=== PATIENT | male | born 1970 | race Caucasian/White ===

== ENCOUNTER 2018-01-31 11:03 | Emergency (ER) | payer MEDICAID, OTHER ==
[~2018-01-31] VITALS: Ht 185.4 cm; Wt 75.0 kg
[~2018-01-31 11:03] MED LIST: BUSP10TA11 PO; CLON-527 PO; FOLI1TAB16 PO; GUAI100L97 PO; MAGN400T6 PO; PER10325T PO; THI100T PO; ZES10T PO
[2018-01-31] MEDS ORDERED: normal saline 1000ml 1,000 ML IV ONE (11:40)
[2018-01-31 12:05] LABS: BASOPHILS % (AUTO) 1.1 % (0-1); EOSINOPHILS # (AUTO) 0.1 X10'3 (0-0.9); EOSINOPHILS % (AUTO) 3.8 % (0-6); HEMATOCRIT 31.4 % (42.0-52.0); HEMOGLOBIN 10.6 g/dl (14.0-17.9); LYMPHOCYTES # (AUTO) 0.8 X10'3 (1.1-4.8); LYMPHOCYTES % (AUTO) 25.9 % (21-51); MEAN CORPUSCULAR HEMOGLOBIN 31.8 PG (27.0-31.0); MEAN CORPUSCULAR HGB CONC 33.7 % (33.0-36.5); MEAN CORPUSCULAR VOLUME 94.4 FL (78-98); MEAN PLATELET VOLUME 7.3 FL (7.4-10.4); MONOCYTES # (AUTO) 0.3 X10'3 (0-0.9); MONOCYTES % (AUTO) 8.7 % (2-12); NEUTROPHILS # (AUTO) 1.9 X10'3 (1.8-7.7); NEUTROPHILS % (AUTO) 60.5 % (42-75); PLATELET COUNT 90 X10'3 (140-440); RED BLOOD COUNT 3.33 X10'6 (4.70-6.10); WHITE BLOOD COUNT 3.1 X10'3 (4.5-11.0)
[2018-01-31] MEDS ORDERED: HYDROmorphone 1 mg/ml syringe IV ONE (12:10)
[2018-01-31] MEDS ORDERED: morphine 4 MG/ML inj SYRINge IV ONE (12:10)
[2018-01-31 12:11] LABS: INR 1.3 INR; PARTIAL THROMBOPLASTIN TIME 23 SECONDS (22-32); PROTHROMBIN TIME 13.3 SECONDS (9.0-12.0)
[2018-01-31] MEDS ORDERED: doxycycline hyclate 100mg tablet.DR PO ONE (12:40)
[2018-01-31] MEDS ORDERED: levoFLOXACIN 750MG TABLET PO ONE (12:40)
[2018-01-31] MEDS ORDERED: LEVO500T89 PO (12:42)
[2018-01-31 13:17] LABS: ALANINE AMINOTRANSFERASE 86 U/L (12-78); ALBUMIN 2.9 G/DL (3.4-5.0); ALBUMIN/GLOBULIN RATIO 0.7 (1.1-1.5); ALKALINE PHOSPHATASE 117 IU/L (46-116); ANION GAP 12 (8-16); ASPARTATE AMINO TRANSFERASE 133 U/L (10-37); BILIRUBIN,TOTAL 1.5 MG/DL (0.1-1.0); BLOOD UREA NITROGEN 9 MG/DL (7-18); BUN/CREATININE RATIO 14.1 (5.4-32.0); CALCIUM 7.6 MG/DL (8.5-10.1); CHLORIDE 108 MMOL/L (99-107); CREATININE 0.64 MG/DL (0.60-1.10); GLUCOSE 89 MG/DL (70-104); POTASSIUM 3.1 MMOL/L (3.5-5.1); SODIUM 149 MMOL/L (135-145); TOTAL CARBON DIOXIDE 28.9 MMOL/L (24-32); TOTAL PROTEIN 7.3 G/DL (6.4-8.2); eGFR > 90 ML/MIN
[2018-01-31] MEDS ORDERED: potassium Cl 20 mEq SR tablet PO STA (13:22)
[2018-01-31] MEDS ORDERED: thiamine 100mg tablet PO ONE (13:25)
[2018-01-31 13:27] LABS: ETHANOL 0.285 GM/DL (0.0-0.010); MAGNESIUM 1.5 MG/DL (1.5-2.4); PHOSPHORUS 3.8 MG/DL (2.3-4.5)
[2018-01-31 13:30] VITALS: BP 122/89
[2018-01-31] MEDS ORDERED: DOXYCYCLINE 100MG CAPSULE PO ONE (15:15)
== END 2018-01-31 13:42 | disposition left against medical advice (07) ==
LOC: ER 11:04
DX: R06.02 Shortness of breath (principal); R11.10 Vomiting, unspecified; F10.129 Alcohol abuse with intoxication, unspecified; R91.8 Other nonspecific abnormal finding of lung field; I10 Essential (primary) hypertension; G89.29 Other chronic pain; Z79.899 Other long term (current) drug therapy; Z79.2 Long term (current) use of antibiotics; Y90.9 Presence of alcohol in blood, level not specified
CPT/HCPCS: 36415; 71045; 80053; 80320; 82140; 83735; 84100; 84443; 84484; 85025; 85610; 85730; 96361; 96374; 99285; J2270

== ENCOUNTER 2018-05-11 12:41 | Emergency (ER) | payer MEDICAID ==
[~2018-05-11] VITALS: Ht 185.4 cm; Wt 86.0 kg
[2018-05-11 12:50] VITALS: BP 143/88
== END 2018-05-11 14:22 | disposition home or self-care (01) ==
LOC: ER 12:42
DX: Z46.89 Encounter for fitting and adjustment of other specified devices (principal); I10 Essential (primary) hypertension; G89.29 Other chronic pain; Z98.890 Other specified postprocedural states; Z88.8 Allergy status to other drugs, medicaments and biological substances; Z79.899 Other long term (current) drug therapy
CPT/HCPCS: 99284

== ENCOUNTER 2018-08-24 18:49 | Emergency (ER) | payer MEDICAID ==
[~2018-08-24] VITALS: Ht 177.8 cm; Wt 90.0 kg
[~2018-08-24 18:49] MED LIST changes: -GUAI100L97 PO; -THI100T PO; +THIA100T73 PO
[2018-08-24] MEDS ORDERED: pantoprazole 40 MG vial IV ONE (20:00)
[2018-08-24] MEDS ORDERED: normal saline 1000ML IV soln IVB ONE (20:05)
[2018-08-24 20:45] LABS: BASOPHILS # (AUTO) 0.1 X10'3 (0-0.2); BASOPHILS % (AUTO) 0.7 % (0-1); EOSINOPHILS % (AUTO) 0.6 % (0-6); HEMATOCRIT 31.4 % (42.0-52.0); HEMOGLOBIN 11.2 g/dl (14.0-17.9); LYMPHOCYTES # (AUTO) 1.2 X10'3 (1.1-4.8); LYMPHOCYTES % (AUTO) 16.7 % (21-51); MEAN CORPUSCULAR HEMOGLOBIN 36.4 PG (27.0-31.0); MEAN CORPUSCULAR HGB CONC 35.8 g/dL (33.0-36.5); MEAN CORPUSCULAR VOLUME 101.8 FL (78-98); MEAN PLATELET VOLUME 6.9 FL (7.4-10.4); MONOCYTES # (AUTO) 0.9 X10'3 (0-0.9); MONOCYTES % (AUTO) 12.9 % (2-12); NEUTROPHILS % (AUTO) 69.1 % (42-75); PLATELET COUNT 137 X10'3 (140-440); RED BLOOD COUNT 3.08 X10'6 (4.70-6.10); RED CELL DISTRIBUTION WIDTH 14.5 % (11.5-14.5); WHITE BLOOD COUNT 7.2 X10'3 (4.5-11.0)
[2018-08-24 21:21] VITALS: BP 135/82
[2018-08-30] MEDS ORDERED: CLON0.1T PO (18:37)
[2018-08-30] MEDS ORDERED: ONDA4TAB12 SL (18:37)
[2018-08-30] MEDS ORDERED: FURO-149 PO (18:37)
[2018-08-30] MEDS ORDERED: SPIR25TA5 PO (18:37)
[2018-08-30] MEDS ORDERED: DOCU100C38 PO (18:37)
[2018-08-30] MEDS ORDERED: PANT-47 PO (18:37)
[2018-08-30] MEDS ORDERED: ALBU18HF2 INH (18:39)
== END 2018-08-24 21:24 | disposition home or self-care (01) ==
LOC: ER 18:49
DX: F10.129 Alcohol abuse with intoxication, unspecified (principal); R11.10 Vomiting, unspecified; R10.11 Right upper quadrant pain; I10 Essential (primary) hypertension; G89.29 Other chronic pain; Z98.890 Other specified postprocedural states; Z88.8 Allergy status to other drugs, medicaments and biological substances; Z79.899 Other long term (current) drug therapy; Y90.9 Presence of alcohol in blood, level not specified
CPT/HCPCS: 36415; 80320; 85025; 86870; 86885; 86900; 86901; 86902; 86905; 96374; 99283; C9113; J7030; 96361

== ENCOUNTER 2018-08-26 02:27 | Inpatient (IN) | payer MEDICAID ==
[2018-08-26] VITALS (7 sets, daily range): BP systolic 86–115; BP diastolic 35–66
[~2018-08-26] VITALS: Ht 185.4 cm; Wt 72.5 kg
[2018-08-26] MEDS ORDERED: magnesium oxide 400mg tablet PO ONE ×2 (06:35→08:50)
[2018-08-26] MEDS ORDERED: folic acid 1mg tablet PO ONE (06:35)
[2018-08-26] MEDS ORDERED: thiamine 100mg tablet PO ONE (06:35)
[2018-08-26] MEDS ORDERED: chlordiazePOXIDE 25mg capsule PO ONE ×2 (06:35→10:05)
--- NOTE | 2018-08-26 07:07 | NUR ---
spoke with lab about getting the gastrocult bottle they advised to send the sample in and they would test it.
[2018-08-26 07:52] LABS: BASOPHILS # (AUTO) 0.1 X10'3 (0-0.2); BASOPHILS % (AUTO) 1.1 % (0-1); EOSINOPHILS # (AUTO) 0.1 X10'3 (0-0.9); EOSINOPHILS % (AUTO) 1.1 % (0-6); HEMATOCRIT 28.8 % (42.0-52.0); HEMOGLOBIN 10.2 g/dl (14.0-17.9); LYMPHOCYTES # (AUTO) 0.6 X10'3 (1.1-4.8); LYMPHOCYTES % (AUTO) 11.7 % (21-51); MEAN CORPUSCULAR HEMOGLOBIN 36.7 PG (27.0-31.0); MEAN CORPUSCULAR HGB CONC 35.5 g/dL (33.0-36.5); MEAN CORPUSCULAR VOLUME 103.4 FL (78-98); MONOCYTES # (AUTO) 0.7 X10'3 (0-0.9); MONOCYTES % (AUTO) 13.3 % (2-12); NEUTROPHILS # (AUTO) 3.9 X10'3 (1.8-7.7); NEUTROPHILS % (AUTO) 72.8 % (42-75); PLATELET COUNT 96 X10'3 (140-440); RED BLOOD COUNT 2.79 X10'6 (4.70-6.10); WHITE BLOOD COUNT 5.4 X10'3 (4.5-11.0)
[2018-08-26 07:57] LABS: ALANINE AMINOTRANSFERASE 117 U/L (12-78); ALBUMIN 3.1 G/DL (3.4-5.0); ALBUMIN/GLOBULIN RATIO 0.8 (1.1-1.5); ALKALINE PHOSPHATASE 77 IU/L (46-116); ANION GAP 8 (8-16); ASPARTATE AMINO TRANSFERASE 147 U/L (10-37); BILIRUBIN,TOTAL 1.4 MG/DL (0.1-1.0); BLOOD UREA NITROGEN 13 MG/DL (7-18); CALCIUM 7.9 MG/DL (8.5-10.1); CHLORIDE 98 MMOL/L (99-107); ETHANOL 0.221 GM/DL (0.0-0.010); GLUCOSE 113 MG/DL (70-104); LIPASE 63 U/L (73-393); MAGNESIUM 1.4 MG/DL (1.5-2.4); POTASSIUM 3.7 MMOL/L (3.5-5.1); SODIUM 134 MMOL/L (135-145); TOTAL PROTEIN 6.9 G/DL (6.4-8.2); eGFR 79 ML/MIN
[2018-08-26 08:12] LABS: PLATELET ESTIMATE DECREASED
[2018-08-26 08:14] LABS: ELLIPTOCYTES 1+; HYPOCHROMASIA 1+; LARGE PLATELETS FEW; POLYCHROMASIA 1+
--- NOTE | 2018-08-26 10:00 | NUR ---
paged picc nurse for an extended piv.
[2018-08-26] MEDS ORDERED: pantoprazole 40 MG vial IV ONE (10:05)
[2018-08-26 10:07] LABS: GASTRIC OCCULT BLOOD NEGATIVE (Neg)
[2018-08-26] MEDS ORDERED: octreotide inj. 1,250 MCG in normal saline 250ml IV soln 250 ML IV ONE (10:48)
[2018-08-26] MEDS ORDERED: pantoprazole 40MG/NS 100ML BAG 100 ML IV ONE (10:50)
[2018-08-26] MEDS ORDERED: octreotide 100mcg/1 ml ampule IV ONE (10:50)
[2018-08-26] MEDS ORDERED: LORazepam 2 mg/ml vial IV PRN ×2 (11:10)
[2018-08-26] MEDS ORDERED: ondansetron/PF 4mg/2ml inj IV PRN (11:10)
[2018-08-26] MEDS ORDERED: dextrose 50%-water 50ml dispensing syringe IV PRN (11:10)
[2018-08-26] MEDS ORDERED: acetaminophen 325mg tablet PO PRN (11:10)
[2018-08-26] MEDS ORDERED: thiamine 100mg/ml 2ml inj. IV ONE (11:10)
[2018-08-26] MEDS ORDERED: magnesium hydroxide 30ml (MOM) UD suspension PO PRN (11:10)
[2018-08-26] MEDS ORDERED: mag hydrox/Alum hydrox/simeth 30ml oral suspension PO PRN (11:10)
--- NOTE | 2018-08-26 11:56 | NUR ---
Extended PIV inserted to the right upper arm basilic vein x 2 attempt using ultrasound. Tao zuñiga. Addendum: 08/26/18 at 1157 by Nancy Sewell RN Amended: Links added.
--- NOTE | 2018-08-26 12:30 | NUR ---
KOLBY Ferraro PHARMACIST ADVISES THAT OCTREOTIDE AND PROTINIX ARE COMPATIBLE, WHEN I LOOKED THEM UP THERE WAS NO INDICATION OF COMPATIBILITY
[2018-08-26] MEDS: normal saline 1000ml 1,000 ML IV SCH (12:39)
[2018-08-26] MEDS ORDERED: LISI-600 PO (12:39)
[2018-08-26] MEDS ORDERED: BUSP15TA3 PO (12:39)
[2018-08-26] MEDS ORDERED: BUPR1FIL3 SL (12:42)
--- NOTE | 2018-08-26 13:19 | NUR ---
called to give report but rn was busy will call back
--- NOTE | 2018-08-26 13:40 | NUR ---
called haris bartholomew who will be assuming care of the pt, she states that she is still busy. will call back in 5 minutes.
--- NOTE | 2018-08-26 13:51 | NUR ---
Patient in ED. I have received report from RUPINDER Noland and had the opportunity to ask questions. Awaiting pt's arrival to PCU room 3021.
--- NOTE | 2018-08-26 14:00 | NUR ---
Pt arrived via gurney from ED. Transferred in to bed without difficulty, pt able to scoot over with direction. Will continue to monitor closely.
--- NOTE | 2018-08-26 14:47 | NUR ---
Paged Dr. Fisher re low b/p & O2 sat. RT paged re trach & low sat. PAGER ID: [phone] MESSAGE: Pt Franchesca Oscar in 3021. B/P 86/35, O2 at 88%. RT paged. Thanks! Jacinta BUCIO [phone]
[2018-08-26] MEDS ORDERED: MIDAZolam 5mg/5ml vial ONE (14:53)
[2018-08-26] MEDS ORDERED: fentaNYL/PF 50MCG/1 ML 2ML syringe ONE (14:53)
[2018-08-26] MEDS ORDERED: flumazenil 0.1 mg/ml inj. IV ONE ×2 (15:00)
[2018-08-26] MEDS: pantoprazole 40MG/NS 100ML BAG 100 ML IV SCH ×2 (16:00→21:00)
--- NOTE | 2018-08-26 16:45 | NUR ---
Protonix gtt ordered. Called & spoke to pharmacist re Y-site compatibility of Protonix & Sandostatin. Medications not Y-site compatible, pharmacist advised NOT running together. Pt has single extended IV in R upper arm, no other IV site available. Will attempt to place additional IV, advised by ED RN Ludin that pt is an extremely difficult stick.
--- NOTE | 2018-08-26 18:35 | NUR ---
Problems reprioritized. Patient report given, questions answered & plan of care reviewed with RUPINDER Watts.
[2018-08-26] MEDS: busPIRone 15mg tablet PO SCH (20:00)
[2018-08-26] MEDS: magnesium oxide 400mg tablet PO SCH (20:00)
[2018-08-27] MEDS ORDERED: dextrose 50%-water 50ml dispensing syringe IV PRN (00:40)
[2018-08-27] MEDS ORDERED: haloperidol 5mg tablet PO PRN (00:40)
[2018-08-27] MEDS ORDERED: haloperidol lactate 5mg/ml inj IM PRN (00:40)
--- NOTE | 2018-08-27 00:50 | NUR ---
Patient shaking uncontrollably. Vitals stable. Called MD and obtained moderate ETOH protocol.
[2018-08-27] MEDS: LORazepam 2 mg/ml vial IV PRN ×2 (00:56→07:58)
[2018-08-27] MEDS: pantoprazole 40MG/NS 100ML BAG 100 ML IV SCH ×2 (01:00→06:00)
--- NOTE | 2018-08-27 01:15 | NUR ---
Attempted to start a second IV for Protonix drip but unable to obtain.
[2018-08-27] MEDS: normal saline 1000ml 1,000 ML IV SCH ×2 (01:17→07:47)
[2018-08-27 02:00] VITALS: BP 115/57
[2018-08-27 03:40] LABS: BASOPHILS % (AUTO) 0.9 % (0-1); EOSINOPHILS # (AUTO) 0.1 X10'3 (0-0.9); EOSINOPHILS % (AUTO) 5.3 % (0-6); HEMATOCRIT 22.9 % (42.0-52.0); LYMPHOCYTES # (AUTO) 0.5 X10'3 (1.1-4.8); LYMPHOCYTES % (AUTO) 18.3 % (21-51); MEAN CORPUSCULAR HEMOGLOBIN 36.2 PG (27.0-31.0); MEAN CORPUSCULAR HGB CONC 35.1 g/dL (33.0-36.5); MEAN CORPUSCULAR VOLUME 103.3 FL (78-98); MEAN PLATELET VOLUME 6.4 FL (7.4-10.4); MONOCYTES # (AUTO) 0.3 X10'3 (0-0.9); MONOCYTES % (AUTO) 11.5 % (2-12); NEUTROPHILS # (AUTO) 1.8 X10'3 (1.8-7.7); RED BLOOD COUNT 2.22 X10'6 (4.70-6.10); RED CELL DISTRIBUTION WIDTH 14.3 % (11.5-14.5); WHITE BLOOD COUNT 2.8 X10'3 (4.5-11.0)
[2018-08-27 03:49] LABS: ALANINE AMINOTRANSFERASE 88 U/L (12-78); ALBUMIN 2.1 G/DL (3.4-5.0); ALBUMIN/GLOBULIN RATIO 0.7 (1.1-1.5); ALKALINE PHOSPHATASE 62 IU/L (46-116); ANION GAP 3 (8-16); ASPARTATE AMINO TRANSFERASE 114 U/L (10-37); BILIRUBIN,TOTAL 1.6 MG/DL (0.1-1.0); BLOOD UREA NITROGEN 12 MG/DL (7-18); BUN/CREATININE RATIO 14.6 (5.4-32.0); CALCIUM 7.2 MG/DL (8.5-10.1); CHLORIDE 103 MMOL/L (99-107); CREATININE 0.82 MG/DL (0.60-1.10); GLUCOSE 88 MG/DL (70-104); POTASSIUM 3.9 MMOL/L (3.5-5.1); SODIUM 136 MMOL/L (135-145); TOTAL CARBON DIOXIDE 29.6 MMOL/L (24-32); TOTAL PROTEIN 5.1 G/DL (6.4-8.2); eGFR > 90 ML/MIN
[2018-08-27 04:06] LABS: PLATELET COUNT 45 X10'3 (140-440)
[2018-08-27 06:00] VITALS: BP 124/91
--- NOTE | 2018-08-27 06:34 | NUR ---
Problems reprioritized. Patient report given, questions answered & plan of care reviewed with Art RN.
[2018-08-27 07:46] VITALS: BP_SYST 124
[2018-08-27] MEDS: magnesium oxide 400mg tablet PO SCH (07:47)
[2018-08-27] MEDS: busPIRone 15mg tablet PO SCH (07:47)
[2018-08-27] MEDS ORDERED: folic acid inj. 2 MG, thiamine inj. 100 MG, MVI, adult No.4 with vit. K 10 ML in dextro... IV SCH ×4 (08:00)
[2018-08-27] MEDS ORDERED: lisinopril 20mg tablet PO SCH (08:00)
[2018-08-27] MEDS ORDERED: folic acid 1mg tablet PO SCH (08:00)
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
[2018-08-29] MEDS ORDERED: LORazepam 2 mg/ml vial IV PRN (00:40)
[2018-08-29] MEDS ORDERED: LORazepam 1 MG tablet PO PRN (00:40)
[2018-08-30] MEDS ORDERED: FURO-149 PO (18:37)
[2018-08-30] MEDS ORDERED: DOCU100C38 PO (18:37)
[2018-08-30] MEDS ORDERED: CLON0.1T PO (18:37)
[2018-08-30] MEDS ORDERED: ONDA4TAB12 SL (18:37)
[2018-08-30] MEDS ORDERED: PANT-47 PO (18:37)
[2018-08-30] MEDS ORDERED: SPIR25TA5 PO (18:37)
[2018-08-30] MEDS ORDERED: ALBU18HF2 INH (18:39)
[2018-08-31] MEDS ORDERED: LORazepam 2 mg/ml vial IV PRN (00:40)
[2018-08-31] MEDS ORDERED: LORazepam 1 MG tablet PO PRN (00:40)
[2018-08-31] MEDS ORDERED: BUPR1FIL3 SL (13:04)
[2018-08-31 14:29] LABS: OCCULT BLOOD STOOL POSITIVE (Neg)
== END 2018-08-27 12:00 | disposition left against medical advice (07) | DRG 253 ==
LOC: ER 02:27 → PCU 3S 14:39
PROVIDERS: ADMIT Family Medicine; ATTEND Internal Medicine
DX: K92.2 Gastrointestinal hemorrhage, unspecified (principal); D69.6 Thrombocytopenia, unspecified; Z93.0 Tracheostomy status; E83.42 Hypomagnesemia; F11.10 Opioid abuse, uncomplicated; F10.239 Alcohol dependence with withdrawal, unspecified; D53.9 Nutritional anemia, unspecified; D50.0 Iron deficiency anemia secondary to blood loss (chronic); Z88.8 Allergy status to other drugs, medicaments and biological substances; Y90.9 Presence of alcohol in blood, level not specified; I10 Essential (primary) hypertension; Y90.7 Blood alcohol level of 200-239 mg/100 ml; Z80.6 Family history of leukemia; M54.9 Dorsalgia, unspecified; Z53.21 Procedure and treatment not carried out due to patient leaving prior to being seen by health care provider
CPT/HCPCS: 36415; 80053; 80320; 82271; 82272; 82948; 83690; 83735; 85025; 86870; 86885; 86900; 86901; 86902; 86905; 87070; 94640; 94760; 96365; 96366; 96368; 96375; 99291; A7521; C9113; G0378; J2060; J2250; J2354; J2405; J3010; J3411; J3490; J7030; J7060

== ENCOUNTER 2018-08-30 14:53 | Inpatient (IN) | payer MEDICAID | END 2018-09-01 17:27 | disposition home or self-care (01) | LOC: ER 14:53 → PCU 3S 17:31 ==

== ENCOUNTER 2018-09-16 09:25 | Emergency (ER) | payer MEDICAID ==
[~2018-09-16] VITALS: Ht 185.4 cm; Wt 95.5 kg
[~2018-09-16 09:25] MED LIST changes: +ALBU18HF2 INH; +BACDS PEG; +BUPR1FIL3 SL; -BUSP10TA11 PO; +BUSP15TA3 PEG; -CLON-527 PO; +DOCU100C38 PEG; +FOLI1TAB16 PEG; -FOLI1TAB16 PO; +FURO-150 PO; +MAGN400T6 PEG; -MAGN400T6 PO; +NEUPHOSK PEG; +PANT-47 PEG; -PER10325T PO; +THIA100T73 PEG; -THIA100T73 PO; -ZES10T PO
[2018-09-16] MEDS ORDERED: ketorolac tromethamine 15mg/ml inj. IM ONE (09:40)
[2018-09-16 09:51] VITALS: BP 133/74
--- NOTE | 2018-09-16 10:38 | NUR ---
PT HAS BEEN VERY BELLIGERENT, CONDESENDING AND DEMANDING TO STAFF SINCE ARRIVAL. PT SWEARING AT STAFF, REFUSING VS, BASIC LABS, STATES THAT IT IS TOO PAINFUL TO GIVE A URINE SAMPLE. ATTEMPTED TO TALK TO PT, CALM HIM DOWN AND PT PROCEEDED TO TELL ME "TO GET MY SORRY ASS OUT OF HERE". PT GIVEN PAIN MEDICATION ORDED WITH MINIMAL COOPERATION
[2018-09-16] MEDS ORDERED: FURO-150 PO (10:44)
--- NOTE | 2018-09-16 11:24 | NUR ---
social media content manager is at bedside
--- NOTE | 2018-09-16 15:36 | NUR ---
LATE ENTRY FOR 09/16: VISITED PATIENT AT BEDSIDE TODAY WITH MIREYA FROM [employer]. PATIENT HAD HIS DISCHARGE MEDICATIONS BROUGHT TO HIM VIA [facility] BEDSIDE DELIVERY. HE WAS PROVIDED WITH CLEAN, SEASONALLY APPROPRIATE CLOTHING. HE HAS SHOES. HE WAS OFFERED [facility], BUT ADAMATELY REFUSED TO GO TO [facility]. HE DECLINED VACCINATIONS. EVELYN GOMES KNOWS PATIENT FROM PREVIOUS ADMISSIONS. SHE ENCOURAGES HIM TO CONTACT HIS RN IV THERAPY.
== END 2018-09-16 11:52 | disposition home or self-care (01) ==
LOC: ER 09:25
DX: N50.89 Other specified disorders of the male genital organs (principal); G89.29 Other chronic pain; F10.20 Alcohol dependence, uncomplicated; Z91.14 Patient's other noncompliance with medication regimen; I10 Essential (primary) hypertension; F17.210 Nicotine dependence, cigarettes, uncomplicated; Z88.8 Allergy status to other drugs, medicaments and biological substances; Z98.890 Other specified postprocedural states; Z79.899 Other long term (current) drug therapy; Y90.9 Presence of alcohol in blood, level not specified; Z59.0 Homelessness
CPT/HCPCS: 76870; 96372; 99284; J1885

== ENCOUNTER 2018-09-17 03:08 | Emergency (ER) | payer MEDICAID ==
[~2018-09-17] VITALS: Ht 185.4 cm; Wt 95.5 kg
[2018-09-17 03:11] VITALS: BP 135/77
--- NOTE | 2018-09-17 04:06 | NUR ---
pt refusing to allow blood draw, pt wants an external jugular iv but only if he gets pain meds, pt refusing all treatments, dr flores notified. explained to patient if he was refusing treatment there was nothing further we could do to treat him. pt leaving ama dr flores aware.
== END 2018-09-17 04:23 | disposition left against medical advice (07) ==
LOC: ER 03:08
DX: R60.0 Localized edema (principal); R04.2 Hemoptysis; I10 Essential (primary) hypertension; G89.29 Other chronic pain; Z98.890 Other specified postprocedural states; Z59.0 Homelessness; Z79.82 Long term (current) use of aspirin; Z88.8 Allergy status to other drugs, medicaments and biological substances; Z79.899 Other long term (current) drug therapy
CPT/HCPCS: 99283

== ENCOUNTER 2018-09-18 09:51 | Emergency (ER) | payer MEDICAID ==
[~2018-09-18] VITALS: Ht 185.4 cm; Wt 90.0 kg
[2018-09-18 10:40] VITALS: BP 131/70
[2018-09-18] MEDS ORDERED: ondansetron 4mg rapidly disintigrating tab PO ONE (11:20)
--- NOTE | 2018-09-18 11:27 | NUR ---
PT COMPLAINS OF NAUSEA AND VOMITTING, NO EMISIS OBSERVED IN ED. ADMINISTERED ZOFRAN ODT.
[2018-09-18 12:59] LABS: ALANINE AMINOTRANSFERASE 72 U/L (12-78); ALBUMIN 2.3 G/DL (3.4-5.0); ALBUMIN/GLOBULIN RATIO 0.5 (1.1-1.5); ALKALINE PHOSPHATASE 78 IU/L (46-116); ANION GAP 8 (8-16); ASPARTATE AMINO TRANSFERASE 132 U/L (10-37); BILIRUBIN,TOTAL 1.3 MG/DL (0.1-1.0); BLOOD UREA NITROGEN 11 MG/DL (7-18); BUN/CREATININE RATIO 15.9 (5.4-32.0); CALCIUM 7.9 MG/DL (8.5-10.1); CHLORIDE 106 MMOL/L (99-107); CREATININE 0.69 MG/DL (0.60-1.10); GLUCOSE 91 MG/DL (70-104); SODIUM 144 MMOL/L (135-145); TOTAL CARBON DIOXIDE 30.5 MMOL/L (24-32); TOTAL PROTEIN 6.5 G/DL (6.4-8.2); eGFR > 90 ML/MIN
[2018-09-18 13:10] LABS: BASOPHILS % (AUTO) 0.6 % (0-1); EOSINOPHILS % (AUTO) 1.4 % (0-6); HEMATOCRIT 25.8 % (42.0-52.0); HEMOGLOBIN 8.8 g/dl (14.0-17.9); LYMPHOCYTES # (AUTO) 0.5 X10'3 (1.1-4.8); LYMPHOCYTES % (AUTO) 13.9 % (21-51); MEAN CORPUSCULAR HEMOGLOBIN 34.7 PG (27.0-31.0); MEAN CORPUSCULAR HGB CONC 34.1 g/dL (33.0-36.5); MEAN CORPUSCULAR VOLUME 101.7 FL (78-98); MEAN PLATELET VOLUME 7.7 FL (7.4-10.4); MONOCYTES # (AUTO) 0.5 X10'3 (0-0.9); MONOCYTES % (AUTO) 14.3 % (2-12); NEUTROPHILS # (AUTO) 2.4 X10'3 (1.8-7.7); NEUTROPHILS % (AUTO) 69.8 % (42-75); PLATELET COUNT 121 X10'3 (140-440); RED BLOOD COUNT 2.54 X10'6 (4.70-6.10); RED CELL DISTRIBUTION WIDTH 14.9 % (11.5-14.5); WHITE BLOOD COUNT 3.4 X10'3 (4.5-11.0)
[2018-09-18 13:21] LABS: PARTIAL THROMBOPLASTIN TIME 23 SECONDS (22-32)
== END 2018-09-18 13:43 | disposition home or self-care (01) ==
LOC: ER 09:51
DX: K92.0 Hematemesis (principal); F10.10 Alcohol abuse, uncomplicated; D64.9 Anemia, unspecified; I10 Essential (primary) hypertension; G89.29 Other chronic pain; Z98.890 Other specified postprocedural states; Z59.0 Homelessness; Z88.6 Allergy status to analgesic agent; Z88.8 Allergy status to other drugs, medicaments and biological substances; Z79.899 Other long term (current) drug therapy; Y90.9 Presence of alcohol in blood, level not specified
CPT/HCPCS: 36415; 80053; 85025; 85610; 85730; 99283

== ENCOUNTER 2018-09-18 22:39 | Emergency (ER) | payer MEDICAID ==
[~2018-09-18] VITALS: Ht 185.4 cm; Wt 100.0 kg
[2018-09-18 22:47] VITALS: BP 142/92
--- NOTE | 2018-09-19 01:28 | NUR ---
AT BEDSIDE PATIENT REFUSING TO WAKE UP
--- NOTE | 2018-09-19 02:32 | NUR ---
PETTY SERRANO MD MADE AWARE
== END 2018-09-19 02:41 | disposition home or self-care (01) ==
LOC: ER 22:40
DX: J95.09 Other tracheostomy complication (principal); I10 Essential (primary) hypertension; G89.29 Other chronic pain; Z59.0 Homelessness; Z98.890 Other specified postprocedural states; Z88.6 Allergy status to analgesic agent; Z88.8 Allergy status to other drugs, medicaments and biological substances; Z79.899 Other long term (current) drug therapy
CPT/HCPCS: 99283; 99284

== ENCOUNTER 2018-11-02 23:20 | Emergency (ER) | payer MEDICAID ==
[~2018-11-02] VITALS: Ht 182.9 cm; Wt 80.0 kg
--- NOTE | 2018-11-03 00:20 | NUR ---
UNABLE TO PLACE BERE BACK IN. PT CONTINUES TO SAT WELL AND REMAINS ON MONITORING EQUIPMENT. Addendum: 11/03/18 at 0112 by TANGELA TIME SHOULD BE 0112 FOR THIS NOTE
[2018-11-03] MEDS ORDERED: diatrozoate meglu/diatrozoate sod (37% iodine) 120ML oral solution PO ONE (00:30)
[2018-11-03 00:48] LABS: BASOPHILS % (AUTO) 0.5 % (0-1); EOSINOPHILS % (AUTO) 0.5 % (0-6); HEMATOCRIT 24.8 % (42.0-52.0); HEMOGLOBIN 8.4 g/dl (14.0-17.9); LYMPHOCYTES # (AUTO) 0.9 X10'3 (1.1-4.8); LYMPHOCYTES % (AUTO) 14.7 % (21-51); MEAN CORPUSCULAR HGB CONC 33.7 g/dL (33.0-36.5); MEAN CORPUSCULAR VOLUME 94.7 FL (78-98); MEAN PLATELET VOLUME 7.6 FL (7.4-10.4); MONOCYTES # (AUTO) 0.8 X10'3 (0-0.9); MONOCYTES % (AUTO) 12.8 % (2-12); NEUTROPHILS # (AUTO) 4.3 X10'3 (1.8-7.7); NEUTROPHILS % (AUTO) 71.5 % (42-75); PLATELET COUNT 94 X10'3 (140-440); RED BLOOD COUNT 2.61 X10'6 (4.70-6.10); RED CELL DISTRIBUTION WIDTH 16.1 % (11.5-14.5)
--- NOTE | 2018-11-03 01:00 | NUR ---
PER PREVIOUS RECORDS PT IS ABLE TO PLACE HIS OWN SHILEY - PT WAS GIVEN GLOVES AND LUBRICATION AND HE ATTEMPTED TO PLACE THE SHILEY BUT STATES "I CAN'T, YOU'RE GOING TO HAVE TO DO IT" - AWARE
[2018-11-03 01:09] LABS: ALANINE AMINOTRANSFERASE 57 U/L (12-78); ALBUMIN/GLOBULIN RATIO 0.6 (1.1-1.5); ALKALINE PHOSPHATASE 95 IU/L (46-116); ANION GAP 11 (8-16); ASPARTATE AMINO TRANSFERASE 94 U/L (10-37); BLOOD UREA NITROGEN 10 MG/DL (7-18); BUN/CREATININE RATIO 8.5 (5.4-32.0); CALCIUM 7.7 MG/DL (8.5-10.1); CHLORIDE 96 MMOL/L (99-107); CREATININE 1.18 MG/DL (0.60-1.10); GLUCOSE 100 MG/DL (70-104); SODIUM 133 MMOL/L (135-145); TOTAL PROTEIN 7.8 G/DL (6.4-8.2); eGFR 65 ML/MIN
[2018-11-03] MEDS ORDERED: diatr meglu/diatrizoate 30ml oral sol.-(3 dose) bottle PO ONE (01:10)
[2018-11-03] MEDS ORDERED: LORazepam 2 mg/ml vial IV ONE ×2 (02:10→13:05)
--- NOTE | 2018-11-03 02:18 | NUR ---
PT MEDICATED WITH ATIVAN - WILL ATTEMPT TO GET CT SCAN OF HEAD NOW
--- NOTE | 2018-11-03 03:31 | NUR ---
PTS PEG/G-TUBE REDRESSED AND TAPED IN PLACE SECONDARY TO IT NOT BEING SUTURED IN PLACE. PT ALSO CLEANED FROM HEAD TO TOE WITH WARM BATH WIPES. WARM BLANKETS GIVEN.
--- NOTE | 2018-11-03 03:42 | NUR ---
MD WITH RT STANDING BY PLACED A 4.0 SHILEY. PT THEN PULLED OUT INNER CANNULA AND STATES IT IS TOO SMALL. PT TOLERATING THE OUTER CANNULA IN PLACE AND RT IS ABLE TO SECURE IT WITH STRING TIES. RT TO SUCTION PT WELL.
--- NOTE | 2018-11-03 03:55 | NUR ---
RT SUCTIONED PT WITH 10FR CATH BUT WAS UNABLE TO GET MUCH OUT OTHER THAN SPIT.
--- NOTE | 2018-11-03 04:10 | NUR ---
MD able to place shiley uncuffed size 4 trach in. RT placed trach ties and inner cannula, howeer pt states that he can't breath very well with the inner cannula in place, its too small. size 4 was placed because MD was unable to place a size 6 back in due to strong tissue resistance. Pt states he normally has a size 6. Trach ties placed, attempted to suction, pt able to clear secretions better with strong cough. Saturations are good on room air. Will continue to monitor.
--- NOTE | 2018-11-03 04:21 | NUR ---
PT RESTING ON GURNEY. NO DISTRESS NOTED. WILL CONTINUE TO MONITOR.
--- NOTE | 2018-11-03 07:15 | NUR ---
PT CURRENTLY RESTING WITH EYES CLOSED, EFFORTLESS RESPIRATIONS OBSERVED.
--- NOTE | 2018-11-03 09:30 | NUR ---
assumed care of pt from Mary Beth RN, pt is resting quietly on gurney, resp even and unlabored, waiting for placement
--- NOTE | 2018-11-03 10:36 | NUR ---
Rec'd call from ER requesting help w/ this pt and the need for a trach adjustment. Per pt he sees Dr. Cheung so I called his office. Spoke w/his medical investigator Ivana and informed her of the situation. She tells me MD is at the endoscopy center but will need to speak doc to doc to verify. Message passed to Zoya in ER to have MD call Dr. Cheung. Continue to monitor
--- NOTE | 2018-11-03 10:45 | NUR ---
PT MOVED TO FAST TRACK, REPORT TO SHANTEL BUCIO
--- NOTE | 2018-11-03 12:16 | NUR ---
Advised that Dr. Duff has spoken w/ Dr. Cheung and Dr. Cheung does not follow pt for his trach issues. He referred pt to an ENT but said that as long pt is saturating adequately it is not an emergency and can be done on a out-pt basis. Pt is followed by the [facility] and they can arrange a f/u at a [facility] for this dilation. Dr. Duff feels pt is stable for dc and will dc him back to his living situation of choice w/ F/U at the [facility]. Continue to monitor.
--- NOTE | 2018-11-03 13:00 | NUR ---
Pt noted with tremors, HR 107-112 and pt reporting concerns he may start to "withdraw". Pt with hx of ETOH abuse. Discussed pts status with Dr. Sherin MD to order Ativan.
--- NOTE | 2018-11-03 13:16 | NUR ---
PATIENT HAS BEEN ACCEPTED TO [facility], AWAITING A BED ASSIGNMENT.
--- NOTE | 2018-11-03 14:17 | NUR ---
Pt with episode of stool incontinence. Stool was soft, brown, formed. I replaced pt's linens with clean ones and provided him with wipes to clean himself. Helped changed pt into a clean gown and disposed of pt's soiled shorts per pt's request. I helped pt place all his belongings in new pt belonging bags. Pt had a large knife among his belongings; I called security to lock it up. Pt requests that we dispose of the knife because he doesn't want it. Security arrived to process and lock up the knife.
--- NOTE | 2018-11-03 14:38 | NUR ---
CALLED TRANSFER CENTER, BED ASSIGNMENT STILL PENDING. TOLD TO KEEP CHECKING BACK.
--- NOTE | 2018-11-03 15:27 | NUR ---
STILL AWAITING A BED, TRANSFER CENTER WILL BE IN CONTACT WITH NURSING SUPRIVISOR YUNIOR AT [facility] AND CALL US BACK.
--- NOTE | 2018-11-03 15:30 | NUR ---
BED ASSIGNMENT GIVEN ROOM 283, # TO CALL REPORT [phone]
[2018-11-03 16:04] VITALS: BP 120/70
== END 2018-11-03 16:06 | disposition short-term general hospital (02) ==
LOC: ER 23:21
DX: J95.09 Other tracheostomy complication (principal); R11.10 Vomiting, unspecified; I10 Essential (primary) hypertension; G89.29 Other chronic pain; R51 Headache; Z59.0 Homelessness; Z98.890 Other specified postprocedural states; Z88.6 Allergy status to analgesic agent; Z88.8 Allergy status to other drugs, medicaments and biological substances; Z79.899 Other long term (current) drug therapy
CPT/HCPCS: 36415; 70450; 72125; 74018; 80053; 82948; 85025; 96374; 96376; 99285; J2060; Q9963

== ENCOUNTER 2018-11-06 09:55 | Emergency (ER) | payer MEDICAID ==
[~2018-11-06] VITALS: Ht 182.9 cm; Wt 86.0 kg
[2018-11-06] MEDS ORDERED: normal saline 1000ML IV soln IVB ONE (10:30)
[2018-11-06] MEDS ORDERED: LORazepam 2 mg/ml vial IM ONE (10:55)
--- NOTE | 2018-11-06 11:55 | NUR ---
GI RN at bedside to evaluate tube. Dr Alcantar will come to the ED to replace the tube.
[2018-11-06 12:28] VITALS: BP 135/77
--- NOTE | 2018-11-06 12:45 | NUR ---
IV ATTEMPT ONCE PER PATIENT'S REQUEST TO "NOT BE A PIN CUSHIN". LOUANN SCHAEFER AWARE OF FAILED ATTEMPT. IV CANCELLED. IV FLUIDS CANCELLED.
== END 2018-11-06 13:48 | disposition home or self-care (01) ==
LOC: ER 09:55
DX: K94.23 Gastrostomy malfunction (principal); I10 Essential (primary) hypertension; G89.29 Other chronic pain; F10.99 Alcohol use, unspecified with unspecified alcohol-induced disorder; Z98.890 Other specified postprocedural states; Z59.0 Homelessness; Z88.6 Allergy status to analgesic agent; Z88.8 Allergy status to other drugs, medicaments and biological substances; Z79.899 Other long term (current) drug therapy; Y83.8 Other surgical procedures as the cause of abnormal reaction of the patient, or of later complication, without mention of misadventure at the time of the procedure; Y92.89 Other specified places as the place of occurrence of the external cause; Y90.9 Presence of alcohol in blood, level not specified
CPT/HCPCS: 43762; 87070; 87075; 87077; 87101; 87186; 96372; 99284; J2060; A5120; B4087

== ENCOUNTER 2018-11-06 18:36 | Emergency (ER) | payer MEDICAID ==
[~2018-11-06] VITALS: Ht 182.9 cm; Wt 86.0 kg
[2018-11-06 18:52] VITALS: BP 131/85
== END 2018-11-06 19:57 | disposition home or self-care (01) ==
LOC: ER 18:36
DX: K94.29 Other complications of gastrostomy (principal); K92.0 Hematemesis; I10 Essential (primary) hypertension; G89.29 Other chronic pain; F10.99 Alcohol use, unspecified with unspecified alcohol-induced disorder; Z98.890 Other specified postprocedural states; Z59.0 Homelessness; Z88.6 Allergy status to analgesic agent; Z88.8 Allergy status to other drugs, medicaments and biological substances; Z79.899 Other long term (current) drug therapy; Y83.8 Other surgical procedures as the cause of abnormal reaction of the patient, or of later complication, without mention of misadventure at the time of the procedure; Y92.89 Other specified places as the place of occurrence of the external cause; Y90.9 Presence of alcohol in blood, level not specified
CPT/HCPCS: 99283

== ENCOUNTER 2018-11-20 11:53 | Inpatient (IN) | payer MEDICAID ==
[~2018-11-20] VITALS: Ht 182.9 cm; Wt 82.5 kg
[~2018-11-20 11:53] MED LIST changes: +MAGN400T28 PEG; -MAGN400T6 PEG
[2018-11-20] MEDS ORDERED: normal saline 1000ML IV soln IV ONE (12:10)
[2018-11-20] MEDS ORDERED: CefTRIAXone 2gm/D5W 50ml 50 ML IV ONE (12:10)
[2018-11-20] MEDS ORDERED: LORazepam 2 mg/ml vial IV ONE ×2 (12:20→14:35)
[2018-11-20] MEDS ORDERED: levetiracetam inj 1,000 MG in normal saline 100ml IV soln 90 ML IV ONE (12:20)
[2018-11-20 12:47] LABS: BASOPHILS % (AUTO) 0.5 % (0-1); EOSINOPHILS % (AUTO) 0.2 % (0-6); HEMATOCRIT 25.2 % (42.0-52.0); HEMOGLOBIN 8.3 g/dl (14.0-17.9); LYMPHOCYTES # (AUTO) 0.4 X10'3 (1.1-4.8); LYMPHOCYTES % (AUTO) 7.4 % (21-51); MEAN CORPUSCULAR HEMOGLOBIN 31.8 PG (27.0-31.0); MEAN CORPUSCULAR HGB CONC 33.2 g/dL (33.0-36.5); MEAN CORPUSCULAR VOLUME 95.7 FL (78-98); MEAN PLATELET VOLUME 7.7 FL (7.4-10.4); MONOCYTES # (AUTO) 0.5 X10'3 (0-0.9); MONOCYTES % (AUTO) 9.3 % (2-12); NEUTROPHILS # (AUTO) 4.7 X10'3 (1.8-7.7); NEUTROPHILS % (AUTO) 82.6 % (42-75); PLATELET COUNT 80 X10'3 (140-440); RED BLOOD COUNT 2.63 X10'6 (4.70-6.10); RED CELL DISTRIBUTION WIDTH 20.7 % (11.5-14.5); WHITE BLOOD COUNT 5.7 X10'3 (4.5-11.0)
[2018-11-20] MEDS ORDERED: cefepime 2g/NS 100ml ADVANTAGE 100 ML IV ONE (12:50)
[2018-11-20] MEDS ORDERED: levoFLOXACIN-Levaquin 750MG/D5 150 ML IV ONE (12:50)
[2018-11-20] MEDS ORDERED: cefepime inj 2 GM in normal saline 100ml IV soln 100 ML IV ONE (12:55)
[2018-11-20 13:00] LABS: ALANINE AMINOTRANSFERASE 31 U/L (12-78); ALBUMIN 2.4 G/DL (3.4-5.0); ALBUMIN/GLOBULIN RATIO 0.6 (1.1-1.5); ALKALINE PHOSPHATASE 100 IU/L (46-116); ANION GAP 10 (8-16); ASPARTATE AMINO TRANSFERASE 58 U/L (10-37); BILIRUBIN,TOTAL 2.1 MG/DL (0.1-1.0); BLOOD UREA NITROGEN 11 MG/DL (7-18); BUN/CREATININE RATIO 11.8 (5.4-32.0); CALCIUM 7.7 MG/DL (8.5-10.1); CHLORIDE 105 MMOL/L (99-107); CREATININE 0.93 MG/DL (0.60-1.10); GLUCOSE 120 MG/DL (70-104); POTASSIUM 3.2 MMOL/L (3.5-5.1); SODIUM 140 MMOL/L (135-145); TOTAL CARBON DIOXIDE 25.1 MMOL/L (24-32); TOTAL PROTEIN 6.6 G/DL (6.4-8.2); eGFR 86 ML/MIN
[2018-11-20 13:02] LABS: PARTIAL THROMBOPLASTIN TIME 34 SECONDS (22-32)
[2018-11-20 13:03] LABS: MAGNESIUM 1.4 MG/DL (1.5-2.4); TROPONIN I < 0.04 NG/ML (0.0-0.05)
[2018-11-20] MEDS ORDERED: ketorolac trometh. 30mg/ml inj. IV ONE (13:05)
[2018-11-20 13:13] LABS: PLATELET ESTIMATE DECREASED
[2018-11-20 13:15] LABS: ANISOCYTOSIS 3+; ELLIPTOCYTES 1+; HYPOCHROMASIA 1+; POLYCHROMASIA 1+
[2018-11-20] MEDS ORDERED: thiamine inj. 100 MG, MVI, adult No.4 with vit. K 10 ML in dextrose 5% water 500ml 489 ML IV ONE ×3 (13:25)
[2018-11-20] MEDS ORDERED: potassium 10mEq/100ml NS w/LIDOcaine (10mg/bag) IV ONE (13:25)
[2018-11-20] MEDS ORDERED: MVI, adult No.4 with vit. K 10 ML in dextrose 5% water 500ml 490 ML IV ONE ×2 (13:28)
[2018-11-20] MEDS ORDERED: potassium CL 10mEq/100ml bag 100 ML IV ONE (13:35)
[2018-11-20] MEDS ORDERED: thiamine inj. 100 MG in normal saline 100ml IV soln 99 ML IV ONE (13:35)
[2018-11-20] MEDS ORDERED: dextrose 50%-water 50ml dispensing syringe IV PRN (13:55)
[2018-11-20] MEDS ORDERED: ipratropium/albuterol 3ml nebule NEB PRN (13:55)
[2018-11-20] MEDS ORDERED: magnesium 4gm in 100ml NS 100 ML IV PRN (13:55)
[2018-11-20] MEDS ORDERED: docusate sod 100mg capsule PO PRN (13:55)
[2018-11-20] MEDS ORDERED: potassium CL 10mEq/100ml bag 100 ML IV PRN ×2 (13:55)
[2018-11-20] MEDS ORDERED: potassium Cl 20 mEq SR tablet PO PRN (13:55)
[2018-11-20] MEDS ORDERED: LORazepam 2 mg/ml vial IV PRN (13:55)
[2018-11-20] MEDS ORDERED: thiamine 100mg/ml 2ml inj. IV ONE (13:55)
[2018-11-20] MEDS ORDERED: magnesium 2GM in 50ml NS 50 ML IV PRN (13:55)
[2018-11-20] MEDS ORDERED: mag hydrox/Alum hydrox/simeth 30ml oral suspension PO PRN (13:55)
[2018-11-20] MEDS ORDERED: ipratropium/albuterol 3ml nebule NEB ONE (14:00)
[2018-11-20] MEDS: normal saline 1000ml 1,000 ML IV SCH ×2 (14:43→23:59)
[2018-11-20] MEDS ORDERED: vancomycin inj 1,000 MG in normal saline 250ml IV soln 250 ML IV ONE (15:35)
--- NOTE | 2018-11-20 15:53 | NUR ---
PT PLACED A STICK IN HIS G TUBE, STICK WAS REMOVED, GASTRIC JUICES (DARK GREEN) COMING OUT OF MIDDLE PORT. DR HESTER NOTIFIED WITH NO FURTHER ORDER. DR HESTER REPORTS CONSULT WITH DR KNIGHT.
[2018-11-20] MEDS ORDERED: cefepime 1GM in D5W 50mL 50 ML IV SCH (16:00)
[2018-11-20] MEDS ORDERED: cefepime inj. 1 GM in dextrose 5%-water 50ml 50 ML IV SCH (16:00)
--- NOTE | 2018-11-20 16:05 | NUR ---
PAGE TO DR. HESTER ER #3-WE HAVE NEW G-TUBE APPLIANCE FROM GI LAB FOR THE PATIENT. WOULD YOU LIKE G-TUBE CHANGED? THIS ONE HAS CAPS ON PORTS. THANKS, MARILOU 4030 DR. HESTER CALLED BACK AND ORDERED FOR NEW G-TUBE TO BE INSERTED.
--- NOTE | 2018-11-20 16:49 | NUR ---
received report from RUPINDER Bonilla in ER
--- NOTE | 2018-11-20 17:37 | NUR ---
pt arrived to unit in stable condition by ER staff, pt in bed, bed in low position, locked, pt oriented to room, call light in reach. pt alert and oriented, lungs diminished, cord tire builder weak, radial and pedal pulses palpable, positive bowel sounds, pt has trach at room air, gtube site draining some green fluid. vital signs hr 80 temp 97, resp 18, o2 96% ra, 103/55 pain 9/10. pt has diffuse bruising, abrasion above left eyebrow, scratch above right eye brow on hairline, abrasion below left nare, left kneeand lower leg abrasions, right knee abrasions, right hand 3rd finger pad round abrasion, abdomen red and excoriated, groin reddened, scrotum reddened, small red area on spine, right heel purple area, left foot 2nd toe scab. pt came to unit with stool all over body, pt was cleaned and put in clean gown and clean linens
--- NOTE | 2018-11-20 17:50 | NUR ---
paged dr kelly PAGER ID: [phone] MESSAGE: sydnee natasha [phone] karlie henderson requesting something for pain please
--- NOTE | 2018-11-20 18:30 | NUR ---
Patient in room PCU 3021. I have received report from Nkechi BUCIO and had the opportunity to ask questions and assume patient care.
--- NOTE | 2018-11-20 18:31 | NUR ---
Problems reprioritized. Patient report given, questions answered & plan of care reviewed with RUPINDER Ortez.
[2018-11-20 19:00] VITALS: BP 103/55
[2018-11-20] MEDS: vancomycin/NS 1 GM ADD-VANTAGE 250 ML IV SCH ×2 (19:25→23:59)
[2018-11-20] MEDS: LORazepam 2 mg/ml vial IV PRN ×3 (19:25→23:59)
[2018-11-20] MEDS ORDERED: non-formulary drug (Buprenorphine Hcl/Naloxone Hcl (Suboxone 8 Mg-2 Mg Sl Film) 1 STRIP) SL SCH (20:00)
[2018-11-20] MEDS: buprenorphine/naloxone 8MG-2MG SUBlingual film SL SCH (21:49)
[2018-11-20] MEDS: ondansetron/PF 4mg/2ml inj IV PRN (21:49)
[2018-11-20 22:00] VITALS: BP 112/59
[2018-11-20] MEDS: cefepime inj. 1 GM in dextrose 5%-water 50ml 50 ML IV SCH (22:46)
--- NOTE | 2018-11-21 00:23 | NUR ---
Notification: Paged Dr Mora RE: PAGER ID: [phone] MESSAGE: Ward Rodríguez RM 6313 PCU would like IV pain medications. PO pain medications do not work on him Thanks Ivana BUCIO ext [phone]
[2018-11-21] MEDS: LORazepam 2 mg/ml vial IV PRN ×3 (01:17→14:12)
[2018-11-21 03:00] VITALS: BP 104/68
[2018-11-21] MEDS: cefepime inj. 1 GM in dextrose 5%-water 50ml 50 ML IV SCH (05:00)
[2018-11-21] MEDS: haloperidol lactate 5mg/ml inj IM PRN ×2 (06:04→19:16)
--- NOTE | 2018-11-21 06:25 | NUR ---
Patient in room PCU 3021. I have received report from bj and had the opportunity to ask questions and assume patient care.
[2018-11-21 06:30] VITALS: BP 136/64
--- NOTE | 2018-11-21 06:36 | NUR ---
Problems reprioritized. Patient report given, questions answered & plan of care reviewed with Tisha BUCIO.
[2018-11-21] MEDS: K and/or MAG REPLACEMENT MC SCH (07:44)
[2018-11-21] MEDS: buprenorphine/naloxone 8MG-2MG SUBlingual film SL SCH ×2 (07:48→20:00)
[2018-11-21 08:46] LABS: EOSINOPHILS # (AUTO) 0.1 X10'3 (0-0.9); EOSINOPHILS % (AUTO) 5.9 % (0-6); HEMATOCRIT 24.5 % (42.0-52.0); HEMOGLOBIN 8.2 g/dl (14.0-17.9); LYMPHOCYTES # (AUTO) 0.4 X10'3 (1.1-4.8); MEAN CORPUSCULAR HEMOGLOBIN 31.9 PG (27.0-31.0); MEAN CORPUSCULAR HGB CONC 33.4 g/dL (33.0-36.5); MEAN CORPUSCULAR VOLUME 95.5 FL (78-98); MONOCYTES # (AUTO) 0.2 X10'3 (0-0.9); MONOCYTES % (AUTO) 9.1 % (2-12); PLATELET COUNT 65 X10'3 (140-440); RED BLOOD COUNT 2.57 X10'6 (4.70-6.10); RED CELL DISTRIBUTION WIDTH 20.9 % (11.5-14.5); WHITE BLOOD COUNT 1.7 X10'3 (4.5-11.0)
[2018-11-21 08:58] LABS: ALANINE AMINOTRANSFERASE 23 U/L (12-78); ALBUMIN 1.8 G/DL (3.4-5.0); ALBUMIN/GLOBULIN RATIO 0.5 (1.1-1.5); ALKALINE PHOSPHATASE 83 IU/L (46-116); ANION GAP 7 (8-16); ASPARTATE AMINO TRANSFERASE 44 U/L (10-37); BILIRUBIN,TOTAL 2.2 MG/DL (0.1-1.0); BLOOD UREA NITROGEN 7 MG/DL (7-18); BUN/CREATININE RATIO 8.4 (5.4-32.0); CALCIUM 7.2 MG/DL (8.5-10.1); CHLORIDE 113 MMOL/L (99-107); CREATININE 0.83 MG/DL (0.60-1.10); GLUCOSE 88 MG/DL (70-104); MAGNESIUM 1.4 MG/DL (1.5-2.4); PHOSPHORUS 2.3 MG/DL (2.3-4.5); POTASSIUM 3.2 MMOL/L (3.5-5.1); SODIUM 144 MMOL/L (135-145); TOTAL CARBON DIOXIDE 24.2 MMOL/L (24-32); TOTAL PROTEIN 5.4 G/DL (6.4-8.2); eGFR > 90 ML/MIN
[2018-11-21] MEDS: normal saline 1000ml 1,000 ML IV SCH ×2 (09:33→19:51)
[2018-11-21] MEDS: VANCOmycin 1250MG/NS 250ml Bag 250 ML IV SCH ×2 (09:34→17:00)
[2018-11-21] MEDS: magnesium Cl slow-release 64mg tablet PO PRN (09:46)
[2018-11-21] MEDS: potassium Cl 20 mEq SR tablet PO PRN ×3 (09:46→14:48)
[2018-11-21] MEDS ORDERED: pneumococcal 23-VAL P-sac vacc 25 mcg/0.5ml vial IMVAC ONE (10:00)
[2018-11-21 11:30] VITALS: BP 106/57
[2018-11-21 11:58] LABS: ANISOCYTOSIS 3+; PLATELET ESTIMATE DECREASED; TOTAL CELLS COUNTED 100
[2018-11-21 11:59] LABS: ELLIPTOCYTES FEW; SMUDGE CELLS FEW
--- NOTE | 2018-11-21 14:35 | NUR ---
RECEIVED REPORT AND ASSUMED CARE FROM RUPINDER MAURICIO. AGREE WITH PRIOR ASSESSMENT.
--- NOTE | 2018-11-21 14:35 | NUR ---
Received report assumed care. Pt is in room resting comfortably NAD.
--- NOTE | 2018-11-21 14:46 | NUR ---
PAGED PICC RN: PLEASE CALL PALOMO MAYA [phone]. TY.
[2018-11-21 15:00] VITALS: BP 110/71
[2018-11-21] MEDS ORDERED: VANCOMYCIN LEVEL IV ONE (15:30)
--- NOTE | 2018-11-21 17:00 | NUR ---
After multiple attempts to clean and start picc process pt refuses to comply. Pt states I am being bossy and speaking too quickly then proceeds to continually touch genitals and touch area of cleaning. I educated pt multiple times of need for sterility and that I would be unable to continue if he continues to touch cleaned area. After fourth attempt to clean area pt again rolling in bed stating its not brain surgery and just get it done. I am refusing to place PICC at this time as I am unable to properly clean skin and continue with sterile process. Pt is being verbally abusive and non-compliant. Abhi RN notified. CARISSA BUCIO
--- NOTE | 2018-11-21 17:10 | NUR ---
DR. HESTER CAME TO FLOOR, WENT TO PT ROOM. NO NEW ORDERS AT THIS TIME. DID STATE"I HAVE TO GO ADMIT A PT". Addendum: 11/21/18 at 1756 by Quintin Aparicio RN TIME WRONG, WAS 1720 WHEN MD ARRIVED.
--- NOTE | 2018-11-21 17:13 | NUR ---
PAGER ID: [phone] MESSAGE: DR. HESTER, [facility]5U/RUNGE. ALVIN CANNOT GET PICC LINE STARTED. SAYS PT WILL NOT HOLD STILL, CONTAMINATES EVERYTHING, KEEPS TOUCHING HIS PENIS, AND GENERALLY BEING ABUSIVE. WE HAVE NO IV NOW, PIV INFILTRATED. PALOMO [phone].
[2018-11-21] MEDS ORDERED: SERT25TA5 PO (17:25)
--- NOTE | 2018-11-21 18:15 | NUR ---
Patient in room PCU 3021. I have received report from Vilma BUCIO and had the opportunity to ask questions and assume patient care.
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
--- NOTE | 2018-11-21 18:33 | NUR ---
Problems reprioritized. Patient report given, questions answered & plan of care reviewed with RUPINDER CHAVEZ.
--- NOTE | 2018-11-21 18:34 | NUR ---
NEW HIRE fruit packer face and fill: I have reviewed and agree with all interventions, assessments performed and documented by RUPINDER MAYA.
[2018-11-21 19:00] VITALS: BP 106/53
--- NOTE | 2018-11-21 20:00 | NUR ---
IV ABO unable to be given DT no access. MD is aware. Pt was noncompliant with allowing IV placement during day shift. An attempt will be made 11/22/18. Will continue to monitor.
[2018-11-21 23:00] VITALS: BP 115/56
[2018-11-22] MEDS: VANCOmycin 1250MG/NS 250ml Bag 250 ML IV SCH ×4 (00:44→22:27)
[2018-11-22] MEDS: haloperidol lactate 5mg/ml inj IM PRN ×3 (00:45→14:09)
[2018-11-22 03:00] VITALS: BP 108/50
[2018-11-22 05:46] LABS: BASOPHILS % (AUTO) 1.4 % (0-1); EOSINOPHILS # (AUTO) 0.2 X10'3 (0-0.9); EOSINOPHILS % (AUTO) 7.1 % (0-6); HEMATOCRIT 26.2 % (42.0-52.0); HEMOGLOBIN 8.8 g/dl (14.0-17.9); LYMPHOCYTES # (AUTO) 0.5 X10'3 (1.1-4.8); LYMPHOCYTES % (AUTO) 25.8 % (21-51); MEAN CORPUSCULAR HEMOGLOBIN 32.5 PG (27.0-31.0); MEAN CORPUSCULAR HGB CONC 33.7 g/dL (33.0-36.5); MEAN CORPUSCULAR VOLUME 96.7 FL (78-98); MEAN PLATELET VOLUME 7.9 FL (7.4-10.4); MONOCYTES # (AUTO) 0.3 X10'3 (0-0.9); MONOCYTES % (AUTO) 12.5 % (2-12); NEUTROPHILS # (AUTO) 1.1 X10'3 (1.8-7.7); NEUTROPHILS % (AUTO) 53.2 % (42-75); PLATELET COUNT 83 X10'3 (140-440); RED BLOOD COUNT 2.71 X10'6 (4.70-6.10); WHITE BLOOD COUNT 2.1 X10'3 (4.5-11.0)
[2018-11-22] MEDS: normal saline 1000ml 1,000 ML IV SCH (05:51)
[2018-11-22 06:00] LABS: ALANINE AMINOTRANSFERASE 30 U/L (12-78); ALBUMIN/GLOBULIN RATIO 0.6 (1.1-1.5); ALKALINE PHOSPHATASE 93 IU/L (46-116); ANION GAP 7 (8-16); ASPARTATE AMINO TRANSFERASE 63 U/L (10-37); BILIRUBIN,TOTAL 1.9 MG/DL (0.1-1.0); BLOOD UREA NITROGEN 5 MG/DL (7-18); BUN/CREATININE RATIO 6.6 (5.4-32.0); CALCIUM 7.4 MG/DL (8.5-10.1); CHLORIDE 114 MMOL/L (99-107); CREATININE 0.76 MG/DL (0.60-1.10); GLUCOSE 87 MG/DL (70-104); MAGNESIUM 1.4 MG/DL (1.5-2.4); PHOSPHORUS 2.3 MG/DL (2.3-4.5); POTASSIUM 3.6 MMOL/L (3.5-5.1); SODIUM 146 MMOL/L (135-145); TOTAL CARBON DIOXIDE 25.5 MMOL/L (24-32); TOTAL PROTEIN 5.6 G/DL (6.4-8.2); eGFR > 90 ML/MIN
--- NOTE | 2018-11-22 06:27 | NUR ---
Problems reprioritized. Patient report given, questions answered & plan of care reviewed with Rony BUCIO.
[2018-11-22 06:51] VITALS: BP 108/56
[2018-11-22] MEDS: buprenorphine/naloxone 8MG-2MG SUBlingual film SL SCH ×2 (07:51→21:03)
[2018-11-22] MEDS: K and/or MAG REPLACEMENT MC SCH (08:02)
--- NOTE | 2018-11-22 08:22 | NUR ---
Paged Dr. Logan promotional table spacer PAGER ID: [phone] MESSAGE: Rony BUCIO [phone] Oscar: Can we have IM and/or PO Ativan order until PICC line placed? May need to pre-medicate for PICC line placement. We do have IM Haldol if you just prefer that. Only IV Ativan ordered. Thank you
[2018-11-22] MEDS ORDERED: LORazepam 2 mg/ml vial IM PRN ×2 (08:25)
[2018-11-22] MEDS ORDERED: VANCOMYCIN LEVEL IV ONE (08:30)
[2018-11-22] MEDS: magnesium Cl slow-release 64mg tablet PO PRN (10:39)
[2018-11-22] MEDS ORDERED: FURO-150 PO (10:42)
[2018-11-22] MEDS ORDERED: PANT-47 PO (10:43)
[2018-11-22] MEDS ORDERED: NEUPHOSK PO (10:44)
[2018-11-22] MEDS ORDERED: BACDS PO (10:45)
[2018-11-22 11:00] VITALS: BP 111/53
[2018-11-22] MEDS ORDERED: morphine 4 MG/ML inj SYRINge IM ONE (14:30)
[2018-11-22 14:36] LABS: PLATELET ESTIMATE DECREASED; TOTAL CELLS COUNTED 100
[2018-11-22 14:37] LABS: ANISOCYTOSIS 3+; ELLIPTOCYTES FEW; SMUDGE CELLS 2+; SPHEROCYTES FEW
[2018-11-22 15:00] VITALS: BP 119/64
[2018-11-22] MEDS: sodium chloride 0.45% 1,000 ML IV SCH ×2 (15:15→22:41)
[2018-11-22] MEDS ORDERED: diatr meglu/diatrizoate 30ml oral sol.-(3 dose) bottle PO ONE (16:50)
--- NOTE | 2018-11-22 18:25 | NUR ---
Problems reprioritized. Patient report given, questions answered & plan of care reviewed with Jacinta BUCIO.
[2018-11-22 19:00] VITALS: BP 113/55
[2018-11-22] MEDS ORDERED: LORazepam 2 mg/ml vial IV PRN (19:35)
[2018-11-22] MEDS: LORazepam 2 mg/ml vial IV PRN (21:13)
[2018-11-22] MEDS: ondansetron/PF 4mg/2ml inj IV PRN (21:13)
[2018-11-22 23:00] VITALS: BP 113/64
[2018-11-23 03:00] VITALS: BP 127/61
[2018-11-23] MEDS ORDERED: VANCOMYCIN LEVEL IV ONE (03:30)
[2018-11-23 03:54] LABS: BASOPHILS % (AUTO) 1.3 % (0-1); EOSINOPHILS # (AUTO) 0.2 X10'3 (0-0.9); EOSINOPHILS % (AUTO) 9.2 % (0-6); HEMATOCRIT 24.8 % (42.0-52.0); HEMOGLOBIN 8.2 g/dl (14.0-17.9); LYMPHOCYTES # (AUTO) 0.6 X10'3 (1.1-4.8); LYMPHOCYTES % (AUTO) 24.4 % (21-51); MEAN CORPUSCULAR HEMOGLOBIN 31.5 PG (27.0-31.0); MEAN CORPUSCULAR VOLUME 95.3 FL (78-98); MEAN PLATELET VOLUME 7.8 FL (7.4-10.4); MONOCYTES # (AUTO) 0.2 X10'3 (0-0.9); MONOCYTES % (AUTO) 9.8 % (2-12); NEUTROPHILS # (AUTO) 1.3 X10'3 (1.8-7.7); NEUTROPHILS % (AUTO) 55.3 % (42-75); PLATELET COUNT 95 X10'3 (140-440); RED BLOOD COUNT 2.61 X10'6 (4.70-6.10); RED CELL DISTRIBUTION WIDTH 20.8 % (11.5-14.5); WHITE BLOOD COUNT 2.3 X10'3 (4.5-11.0)
[2018-11-23 04:26] LABS: EOSINOPHILS % (MANUAL) 6 % (0-6); HYPOCHROMASIA 1+; LYMPHOCYTES % (MANUAL) 20 % (21-51); MONOCYTES % (MANUAL) 10 % (2-12); NEUTROPHILS % (MANUAL) 64 % (42-75); PLATELET ESTIMATE DECREASED; SMUDGE CELLS 1+; TOTAL CELLS COUNTED 100
[2018-11-23 04:27] LABS: ANISOCYTOSIS 3+
[2018-11-23 06:00] VITALS: BP 126/64
--- NOTE | 2018-11-23 06:13 | NUR ---
Problems reprioritized. Patient report given, questions answered & plan of care reviewed with RUPINDER Shea.
--- NOTE | 2018-11-23 06:20 | NUR ---
Patient in room PCU 3021. I have received report from Jacinta BUCIO and had the opportunity to ask questions and assume patient care.
--- NOTE | 2018-11-23 07:01 | NUR ---
Patient in room PCU 3021. I have received report from Jacinta BUCIO and had the opportunity to ask questions and assume patient care.
[2018-11-23] MEDS: K and/or MAG REPLACEMENT MC SCH (08:00)
[2018-11-23] MEDS: buprenorphine/naloxone 8MG-2MG SUBlingual film SL SCH ×2 (08:47→21:56)
[2018-11-23] MEDS: sodium chloride 0.45% 1,000 ML IV SCH ×2 (08:47→16:23)
[2018-11-23 09:33] LABS: ALANINE AMINOTRANSFERASE 34 U/L (12-78); ALBUMIN 1.9 G/DL (3.4-5.0); ALBUMIN/GLOBULIN RATIO 0.5 (1.1-1.5); ALKALINE PHOSPHATASE 95 IU/L (46-116); ANION GAP 8 (8-16); ASPARTATE AMINO TRANSFERASE 67 U/L (10-37); BILIRUBIN,TOTAL 1.8 MG/DL (0.1-1.0); BLOOD UREA NITROGEN 3 MG/DL (7-18); CALCIUM 7.3 MG/DL (8.5-10.1); CHLORIDE 111 MMOL/L (99-107); CREATININE 0.75 MG/DL (0.60-1.10); GLUCOSE 91 MG/DL (70-104); MAGNESIUM 2.1 MG/DL (1.5-2.4); PHOSPHORUS 2.3 MG/DL (2.3-4.5); POTASSIUM 3.6 MMOL/L (3.5-5.1); SODIUM 143 MMOL/L (135-145); TOTAL CARBON DIOXIDE 23.8 MMOL/L (24-32); TOTAL PROTEIN 5.6 G/DL (6.4-8.2); eGFR > 90 ML/MIN
[2018-11-23] MEDS: vancomycin/NS 1 GM ADD-VANTAGE 250 ML IV SCH ×3 (10:32→21:56)
[2018-11-23 11:00] VITALS: BP 139/69
[2018-11-23] MEDS: LORazepam 2 mg/ml vial IV PRN (11:29)
[2018-11-23] MEDS ORDERED: thiamine inj. 100 MG in normal saline 100ml IV soln 100 ML IV ONE (12:25)
[2018-11-23] MEDS ORDERED: MVI, adult No.4 with vit. K 10 ML in dextrose 5% water 500ml 500 ML IV SCH ×2 (12:25)
[2018-11-23] MEDS ORDERED: thiamine inj. 100 MG, folic acid inj. 2 MG in normal saline 100ml IV soln 100 ML IV ONE (13:05)
--- NOTE | 2018-11-23 14:18 | NUR ---
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 No signs of abscess present to PEG on CT scan however RN reports possible obstruction to PEG per MD notes. Pt with heavy Etoh abuse via PEG per MD notes, receiving banana bag. Per RD note 09/01/18 pt reports nutrition usually half PO liquid meals and half via PEG only takes meds crushed via PEG although ST notes that same day indicates pt reported that he receives all nutrition via PEG and only eats PO for gratification. ST notes state no s/s aspiration with pureed food and thin liquids although pt c/o severe esophageal pain with swallow (09/01/18). Recommend continuing with PO diet as tolerated with initiation of nutrition support once okayed by MD. Pt may benefit from repeat BSS with ST. Will need new weight to estimate nutrient needs if to start nutrition support via PEG as current documented weight is patient stated. LBM 11/23. Will continue to follow and make recommendations as appropriate. Recommendations: 1) BSS with ST to determine appropriate diet advancement as medically indicated 2) Initiation of nutrition support via PEG once medically indicated, will need scaled weight to determine estimated nutrient needs 3) Continue banana bag given heavy Etoh abuse 4) Wt per rx Addendum: 11/23/18 at [address] Amended: Links added.
[2018-11-23 15:00] VITALS: BP 142/61
--- NOTE | 2018-11-23 16:00 | NUR ---
PAGER ID: [phone] MESSAGE: [phone] Oscar: [facility] called in regards to patient's home medications and would like for you to review and finalize it. Thank you Inder [phone]
--- NOTE | 2018-11-23 17:11 | NUR ---
PAGER ID: [phone] MESSAGE: [phone]: Can we get an order for ensure with meals? Thanks Inder
[2018-11-23] MEDS: NUT.TX.IMPAIRED DIGEST FXN (Ensure Clear) 237 ML PO SCH (18:00)
--- NOTE | 2018-11-23 18:00 | NUR ---
I have reviewed orientee RN's charting and I agree with it.
[2018-11-23 18:14] LABS: CLARITY,URINE SLIGHTLY CLOUDY (Clear); COLOR,URINE YELLOW (Yellow); GLUCOSE, URINE NEGATIVE (Neg); KETONES,URINE NEGATIVE (Neg); LEUKOCYTE ESTERASE ,URINE SMALL (Neg); NITRITES, URINE NEGATIVE (Neg); OCCULT BLOOD,URINE NEGATIVE (Neg); PROTEIN,URINE NEGATIVE (Neg)
[2018-11-23 18:16] LABS: URINE AMPHETAMINE SCREEN NEGATIVE (Neg); URINE BARBITUATE SCREEN NEGATIVE (Neg); URINE BENZODIAZEPINES SCREEN POSITIVE (Neg); URINE CANNABINOID SCREEN NEGATIVE (Neg); URINE COCAINE SCREEN NEGATIVE (Neg); URINE METHADONE SCREEN NEGATIVE (Neg); URINE OPIATE SCREEN POSITIVE (Neg); URINE PHENCYCLIDINE SCREEN NEGATIVE (Neg)
[2018-11-23 18:25] LABS: UA COLLECTION TYPE NON-SPECIFIED
[2018-11-23 18:31] LABS: BACTERIA,URINE NONE SEEN /HPF (Neg); MUCUS STRANDS NONE SEEN /LPF (Neg); RBC,URINE NONE SEEN /HPF (0-2); SQUAMOUS EPITHELIAL CELL,UR FEW /LPF (FEW); WBC,URINE 20-30 /HPF (0-4)
--- NOTE | 2018-11-23 18:36 | NUR ---
Problems reprioritized. Patient report given, questions answered & plan of care reviewed with Blake BUCIO.
--- NOTE | 2018-11-23 18:36 | NUR ---
Problems reprioritized. Patient report given, questions answered & plan of care reviewed with Maite BUCIO.
[2018-11-23 19:00] VITALS: BP 128/68
[2018-11-23] MEDS: Neutra Phos packet PO SCH (21:56)
[2018-11-23] MEDS: pantoprazole 40mg Tablet.DR PO SCH (21:56)
[2018-11-23] MEDS: magnesium oxide 400mg tablet PEG SCH (21:57)
[2018-11-23] MEDS: busPIRone 15mg tablet PEG SCH (21:57)
[2018-11-23 23:00] VITALS: BP 134/57
[2018-11-24] MEDS: sodium chloride 0.45% 1,000 ML IV SCH ×3 (02:21→20:51)
[2018-11-24 03:00] VITALS: BP 126/79
[2018-11-24] MEDS ORDERED: VANCOMYCIN LEVEL IV ONE ×2 (03:30→09:30)
[2018-11-24] MEDS: vancomycin/NS 1 GM ADD-VANTAGE 250 ML IV SCH (04:58)
[2018-11-24 06:00] VITALS: BP 134/82
--- NOTE | 2018-11-24 06:00 | NUR ---
Patient in room PCU 3021. I have received report from Blake BUCIO and had the opportunity to ask questions and assume patient care.
--- NOTE | 2018-11-24 06:00 | NUR ---
Patient in room PCU 3021. I have received report from Blake BUCIO and had the opportunity to ask questions and assume patient care.
[2018-11-24] MEDS: sertraline 25mg tablet PO SCH (07:37)
[2018-11-24] MEDS: busPIRone 15mg tablet PEG SCH ×3 (07:37→20:26)
[2018-11-24] MEDS: magnesium oxide 400mg tablet PEG SCH ×2 (07:37→20:26)
[2018-11-24] MEDS: thiamine 100mg tablet PEG SCH (07:37)
[2018-11-24] MEDS: Neutra Phos packet PO SCH ×2 (07:37→20:27)
[2018-11-24] MEDS: pantoprazole 40mg Tablet.DR PO SCH ×2 (07:37→20:27)
[2018-11-24] MEDS: fluconazole-Diflucan 100MG/NS 50 ML IV SCH (07:37)
[2018-11-24] MEDS: folic acid 1mg tablet PEG SCH (07:38)
[2018-11-24] MEDS: buprenorphine/naloxone 8MG-2MG SUBlingual film SL SCH ×2 (07:38→20:27)
[2018-11-24] MEDS: NUT.TX.IMPAIRED DIGEST FXN (Ensure Clear) 237 ML PO SCH ×3 (07:39→18:00)
[2018-11-24 08:08] LABS: ALANINE AMINOTRANSFERASE 32 U/L (12-78); ALBUMIN/GLOBULIN RATIO 0.5 (1.1-1.5); ALKALINE PHOSPHATASE 95 IU/L (46-116); ANION GAP 7 (8-16); BILIRUBIN,TOTAL 1.8 MG/DL (0.1-1.0); BLOOD UREA NITROGEN 1 MG/DL (7-18); BUN/CREATININE RATIO 1.4 (5.4-32.0); CALCIUM 7.1 MG/DL (8.5-10.1); CHLORIDE 112 MMOL/L (99-107); CREATININE 0.69 MG/DL (0.60-1.10); GLUCOSE 85 MG/DL (70-104); MAGNESIUM 1.4 MG/DL (1.5-2.4); POTASSIUM 3.8 MMOL/L (3.5-5.1); SODIUM 144 MMOL/L (135-145); TOTAL PROTEIN 5.8 G/DL (6.4-8.2); eGFR > 90 ML/MIN
[2018-11-24 08:11] LABS: ASPARTATE AMINO TRANSFERASE 66 U/L (10-37)
--- NOTE | 2018-11-24 08:22 | NUR ---
PAGER ID: [phone] MESSAGE: [phone] Oscar: [facility] platelets [phone]. thank you. Inder [phone]
[2018-11-24] MEDS ORDERED: potassium CL 10mEq/100ml bag 100 ML IV PRN (08:30)
[2018-11-24] MEDS ORDERED: magnesium 4gm in 100ml NS 100 ML IV PRN (08:30)
[2018-11-24] MEDS ORDERED: potassium Cl 20 mEq SR tablet PO PRN ×2 (08:30)
--- NOTE | 2018-11-24 08:30 | NUR ---
Discussed with Dr. Logan in regards to pt's critical plt labs, ordered repeat lab draw at 1400
[2018-11-24] MEDS: LORazepam 2 mg/ml vial IV PRN ×2 (08:48→23:59)
[2018-11-24] MEDS: K and/or MAG REPLACEMENT MC SCH (08:49)
[2018-11-24 09:53] LABS: SCHISTOCYTES FEW
[2018-11-24] MEDS ORDERED: thiamine inj. 100 MG in normal saline 100ml IV soln 100 ML IV SCH (10:00)
[2018-11-24] MEDS ORDERED: thiamine inj. 100 MG, folic acid inj. 2 MG in normal saline 100ml IV soln 100 ML IV SCH (10:00)
[2018-11-24] MEDS: MULTIVIT-MIN/FERROUS GLUCONATE 9 MG/15 ML LIQUID PEG SCH (10:44)
[2018-11-24] MEDS: VANCOMYCIN 750MG IV in NS 250 ML IV SCH ×3 (10:44→22:06)
[2018-11-24 11:00] VITALS: BP 122/72
--- NOTE | 2018-11-24 11:43 | NUR ---
PAGER ID: [phone] MESSAGE: [phone] Oscar: Pt is c/o of generalized pain 01/03, no prn pain medication ordered. Please advise. Thank you Inder [phone]
[2018-11-24] MEDS ORDERED: magnesium 2GM in 50ml NS 50 ML IV ONE (12:45)
[2018-11-24 15:00] VITALS: BP 133/77
--- NOTE | 2018-11-24 15:00 | NUR ---
I agree with all of [facility] RN's charting. -Shabbir
--- NOTE | 2018-11-24 15:00 | NUR ---
Problems reprioritized. Patient report given, questions answered & plan of care reviewed with Junie BUCIO.
[2018-11-24] MEDS ORDERED: LORazepam 2 mg/ml vial IV ONE (15:15)
--- NOTE | 2018-11-24 15:16 | NUR ---
Patient in room PCU 3021. I have received report from Shabbir BUCIO and Inder BUCIO and had the opportunity to ask questions and assume patient care.
[2018-11-24 15:52] LABS: BASOPHILS % (AUTO) 1.1 % (0-1); EOSINOPHILS # (AUTO) 0.1 X10'3 (0-0.9); EOSINOPHILS % (AUTO) 5.6 % (0-6); HEMATOCRIT 26.1 % (42.0-52.0); HEMOGLOBIN 8.7 g/dl (14.0-17.9); LYMPHOCYTES # (AUTO) 0.4 X10'3 (1.1-4.8); LYMPHOCYTES % (AUTO) 16.2 % (21-51); MEAN CORPUSCULAR HEMOGLOBIN 31.7 PG (27.0-31.0); MEAN CORPUSCULAR HGB CONC 33.1 g/dL (33.0-36.5); MEAN CORPUSCULAR VOLUME 95.6 FL (78-98); MEAN PLATELET VOLUME 7.7 FL (7.4-10.4); MONOCYTES # (AUTO) 0.3 X10'3 (0-0.9); NEUTROPHILS # (AUTO) 1.7 X10'3 (1.8-7.7); NEUTROPHILS % (AUTO) 65.1 % (42-75); PLATELET COUNT 99 X10'3 (140-440); RED BLOOD COUNT 2.73 X10'6 (4.70-6.10); RED CELL DISTRIBUTION WIDTH 20.5 % (11.5-14.5); WHITE BLOOD COUNT 2.6 X10'3 (4.5-11.0)
[2018-11-24 16:50] LABS: PLATELET FUNCTION (ADP) 114 SECONDS (63-104)
[2018-11-24 18:00] VITALS: BP 131/75
--- NOTE | 2018-11-24 18:20 | NUR ---
Patient in room PCU 3021. I have received report from RUPINDER Zaman and had the opportunity to ask questions and assume patient care. Will continue to monitor
[2018-11-24] MEDS: lactobacillus rhamnosus 10,000 MMU CELLS/CAPSULE PO SCH (20:26)
[2018-11-24 22:00] VITALS: BP 130/76
[2018-11-25 02:00] VITALS: BP 127/70
[2018-11-25] MEDS ORDERED: VANCOMYCIN LEVEL IV NR (03:30)
[2018-11-25] MEDS ORDERED: VANCOMYCIN LEVEL IV ONE (03:30)
[2018-11-25] MEDS: VANCOMYCIN 750MG IV in NS 250 ML IV SCH (03:30)
[2018-11-25 03:46] LABS: BASOPHILS % (AUTO) 0.9 % (0-1); EOSINOPHILS # (AUTO) 0.2 X10'3 (0-0.9); EOSINOPHILS % (AUTO) 7.5 % (0-6); HEMATOCRIT 25.8 % (42.0-52.0); HEMOGLOBIN 8.6 g/dl (14.0-17.9); LYMPHOCYTES # (AUTO) 0.6 X10'3 (1.1-4.8); LYMPHOCYTES % (AUTO) 23.4 % (21-51); MEAN CORPUSCULAR HEMOGLOBIN 31.5 PG (27.0-31.0); MEAN CORPUSCULAR HGB CONC 33.1 g/dL (33.0-36.5); MEAN CORPUSCULAR VOLUME 95.3 FL (78-98); MEAN PLATELET VOLUME 7.6 FL (7.4-10.4); MONOCYTES # (AUTO) 0.4 X10'3 (0-0.9); MONOCYTES % (AUTO) 14.1 % (2-12); NEUTROPHILS # (AUTO) 1.4 X10'3 (1.8-7.7); NEUTROPHILS % (AUTO) 54.1 % (42-75); PLATELET COUNT 84 X10'3 (140-440); RED BLOOD COUNT 2.71 X10'6 (4.70-6.10); RED CELL DISTRIBUTION WIDTH 20.7 % (11.5-14.5); WHITE BLOOD COUNT 2.5 X10'3 (4.5-11.0)
[2018-11-25 03:49] LABS: ALANINE AMINOTRANSFERASE 32 U/L (12-78); ALBUMIN 1.8 G/DL (3.4-5.0); ALBUMIN/GLOBULIN RATIO 0.5 (1.1-1.5); ALKALINE PHOSPHATASE 88 IU/L (46-116); ANION GAP 5 (8-16); ASPARTATE AMINO TRANSFERASE 45 U/L (10-37); BILIRUBIN,TOTAL 1.4 MG/DL (0.1-1.0); BLOOD UREA NITROGEN 0 MG/DL (7-18); CALCIUM 7.5 MG/DL (8.5-10.1); CHLORIDE 114 MMOL/L (99-107); CREATININE 0.65 MG/DL (0.60-1.10); GLUCOSE 92 MG/DL (70-104); MAGNESIUM 1.7 MG/DL (1.5-2.4); POTASSIUM 3.6 MMOL/L (3.5-5.1); SODIUM 145 MMOL/L (135-145); TOTAL PROTEIN 5.5 G/DL (6.4-8.2); eGFR > 90 ML/MIN
[2018-11-25 03:55] LABS: VANCOMYCIN,TROUGH 21.2 UG/ML (6.0-14.0)
--- NOTE | 2018-11-25 04:11 | NUR ---
Sent page to Dr. Bowen regarding Patients' critical Vancomycin through results. PAGER ID: [phone] MESSAGE: Ward Oscar Room # 3022A has been getting critical Vancomycin through values. On 11/24/18 @ 09:31 through was 23.6 and 11/25/18 @ 03:20 through was 21.2. Thank you. Gerry [phone] Close [X] Send Another Page
[2018-11-25 04:36] LABS: TOTAL CELLS COUNTED 100
[2018-11-25 04:37] LABS: ANISOCYTOSIS 3+; PLATELET ESTIMATE DECREASED
[2018-11-25 04:38] LABS: ELLIPTOCYTES FEW; SCHISTOCYTES FEW; TOXIC GRANULATION 3+
--- NOTE | 2018-11-25 05:31 | NUR ---
[facility] documentation: I have reviewed all interventions, assessments performed and documented by Gerry BUCIO. [facility] Medication Administration: For this medication-pass time frame, all medication were reviewed, dispensed, administered and documented per hospital policy by Gerry BUCIO.
[2018-11-25 06:00] VITALS: BP 113/62
--- NOTE | 2018-11-25 06:00 | NUR ---
Patient in room PCU 3021. I have received report from Zoya BUCIO and had the opportunity to ask questions and assume patient care.
--- NOTE | 2018-11-25 06:27 | NUR ---
Problems reprioritized. Patient report given, questions answered & plan of care reviewed with Shabbir BUCIO.
[2018-11-25] MEDS: sodium chloride 0.45% 1,000 ML IV SCH ×2 (07:41→16:11)
[2018-11-25] MEDS: busPIRone 15mg tablet PEG SCH ×3 (07:41→20:22)
[2018-11-25] MEDS: MULTIVIT-MIN/FERROUS GLUCONATE 9 MG/15 ML LIQUID PEG SCH (07:41)
[2018-11-25] MEDS: lactobacillus rhamnosus 10,000 MMU CELLS/CAPSULE PO SCH ×2 (07:41→20:21)
[2018-11-25] MEDS: fluconazole-Diflucan 100MG/NS 50 ML IV SCH (07:41)
[2018-11-25] MEDS: magnesium oxide 400mg tablet PEG SCH ×2 (07:41→20:21)
[2018-11-25] MEDS: thiamine 100mg tablet PEG SCH (07:41)
[2018-11-25] MEDS: buprenorphine/naloxone 8MG-2MG SUBlingual film SL SCH ×2 (07:41→20:22)
[2018-11-25] MEDS: sertraline 25mg tablet PO SCH (07:42)
[2018-11-25] MEDS: Neutra Phos packet PO SCH ×2 (07:42→20:22)
[2018-11-25] MEDS: pantoprazole 40mg Tablet.DR PO SCH ×2 (07:42→20:22)
[2018-11-25] MEDS: folic acid 1mg tablet PEG SCH (07:42)
[2018-11-25] MEDS: NUT.TX.IMPAIRED DIGEST FXN (Ensure Clear) 237 ML PO SCH ×3 (08:00→18:00)
[2018-11-25] MEDS: K and/or MAG REPLACEMENT MC SCH (08:00)
[2018-11-25] MEDS: vancomycin inj 500 MG in normal saline 100ml IV soln 100 ML IV SCH ×3 (10:38→22:21)
[2018-11-25 11:00] VITALS: BP 115/67
--- NOTE | 2018-11-25 12:17 | NUR ---
Reassessment: Pt had a PICC line placed however pt pulled it out per MD notes. PEG has been adjusted by surgeon as it was not against the stomach wall per MD notes. Pt continues on clear liquid diet with poor PO intake 0-25%, MD has ordered Ensure Clear TID, pending documentation of ONS intake. Pt now day five on clear liquid diet. D/w MD who states unknown swallowing ability d/t hx esophageal strictures/varices. ST has been consulted for BSS. LBM 11/25. Will continue to follow. 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 No signs of abscess present to PEG on CT scan however RN reports possible obstruction to PEG per MD notes. Pt with heavy Etoh abuse via PEG per MD notes, receiving banana bag. Per RD note 09/01/18 pt reports nutrition usually half PO liquid meals and half via PEG only takes meds crushed via PEG although ST notes that same day indicates pt reported that he receives all nutrition via PEG and only eats PO for gratification. ST notes state no s/s aspiration with pureed food and thin liquids although pt c/o severe esophageal pain with swallow (09/01/18). Recommend continuing with PO diet as tolerated with initiation of nutrition support once okayed by MD. Pt may benefit from repeat BSS with ST. Will need new weight to estimate nutrient needs if to start nutrition support via PEG as current documented weight is patient stated. LBM 11/23. Will continue to follow and make recommendations as appropriate. Recommendations: 1) BSS with ST to determine appropriate diet advancement as medically indicated 2) Initiation of nutrition support via PEG once medically indicated, will need scaled weight to determine estimated nutrient needs 3) Continue banana bag given heavy Etoh abuse 4) Wt per rx Addendum: 11/25/18 at [address] Amended: Links added.
--- NOTE | 2018-11-25 12:23 | NUR ---
F/u: Noted that per RN notes pt drinking 100% of Ensure Clear. Addendum: 11/25/18 at [address] Amended: Links added.
[2018-11-25 15:00] VITALS: BP 142/79
[2018-11-25 18:00] VITALS: BP 119/60
--- NOTE | 2018-11-25 18:00 | NUR ---
Problems reprioritized. Patient report given, questions answered & plan of care reviewed with Zoya BUCIO.
[2018-11-25] MEDS: LORazepam 2 mg/ml vial IV PRN (20:23)
[2018-11-25 22:00] VITALS: BP 131/74
[2018-11-26 02:00] VITALS: BP 120/65
[2018-11-26] MEDS: sodium chloride 0.45% 1,000 ML IV SCH ×3 (02:52→22:20)
[2018-11-26] MEDS ORDERED: VANCOMYCIN LEVEL IV ONE (03:30)
[2018-11-26] MEDS: vancomycin inj 500 MG in normal saline 100ml IV soln 100 ML IV SCH ×5 (03:43→22:39)
[2018-11-26 04:11] LABS: MAGNESIUM 1.3 MG/DL (1.5-2.4); VANCOMYCIN,TROUGH 16.4 UG/ML (6.0-14.0)
[2018-11-26] MEDS: magnesium Cl slow-release 64mg tablet PO PRN ×2 (04:27→11:51)
[2018-11-26 06:00] VITALS: BP 123/62
--- NOTE | 2018-11-26 06:16 | NUR ---
Problems reprioritized. Patient report given, questions answered & plan of care reviewed with Art RN & Marcelina RN.
[2018-11-26] MEDS: NUT.TX.IMPAIRED DIGEST FXN (Ensure Clear) 237 ML PO SCH ×3 (08:00→18:00)
[2018-11-26] MEDS: K and/or MAG REPLACEMENT MC SCH (08:00)
[2018-11-26] MEDS: lactobacillus rhamnosus 10,000 MMU CELLS/CAPSULE PO SCH ×2 (08:31→20:51)
[2018-11-26] MEDS: busPIRone 15mg tablet PEG SCH ×3 (08:31→20:51)
[2018-11-26] MEDS: sertraline 25mg tablet PO SCH (08:31)
[2018-11-26] MEDS: buprenorphine/naloxone 8MG-2MG SUBlingual film SL SCH ×2 (08:31→20:50)
[2018-11-26] MEDS: thiamine 100mg tablet PEG SCH (08:32)
[2018-11-26] MEDS: folic acid 1mg tablet PEG SCH (08:32)
[2018-11-26] MEDS: MULTIVIT-MIN/FERROUS GLUCONATE 9 MG/15 ML LIQUID PEG SCH (08:32)
[2018-11-26] MEDS: Neutra Phos packet PO SCH ×2 (08:32→20:52)
[2018-11-26] MEDS: pantoprazole 40mg Tablet.DR PO SCH ×2 (08:32→20:50)
[2018-11-26] MEDS: magnesium oxide 400mg tablet PEG SCH ×2 (08:32→20:50)
[2018-11-26] MEDS: fluconazole-Diflucan 100MG/NS 50 ML IV SCH (08:32)
[2018-11-26 11:00] VITALS: BP 152/79
--- NOTE | 2018-11-26 12:52 | NUR ---
Sent page to case management per pt request.
[2018-11-26 15:00] VITALS: BP 127/64
--- NOTE | 2018-11-26 17:57 | NUR ---
[facility] documentation: I have reviewed and agree with all interventions, assessments performed and documented by RUPINDER Hewitt.
--- NOTE | 2018-11-26 18:30 | NUR ---
Problems reprioritized. Patient report given, questions answered & plan of care reviewed with RUPINDER Costa.
--- NOTE | 2018-11-26 18:32 | NUR ---
Patient in room PCU 3021. I have received report from Fanta Barney RN and had the opportunity to ask questions and assume patient care.
[2018-11-26 19:00] VITALS: BP 144/81
[2018-11-26] MEDS: ondansetron/PF 4mg/2ml inj IV PRN (23:04)
[2018-11-26] MEDS: LORazepam 2 mg/ml vial IV PRN (23:04)
[2018-11-27 01:00] VITALS: BP 141/86
--- NOTE | 2018-11-27 01:35 | NUR ---
I have reviewed and agree with Julissa BUCIOroll edge machine operator
[2018-11-27] MEDS: vancomycin inj 500 MG in normal saline 100ml IV soln 100 ML IV SCH ×2 (04:05→10:00)
[2018-11-27] MEDS: LORazepam 2 mg/ml vial IV PRN (04:17)
[2018-11-27 06:00] VITALS: BP 129/68
[2018-11-27 06:10] LABS: BASOPHILS % (AUTO) 1.1 % (0-1); EOSINOPHILS # (AUTO) 0.2 X10'3 (0-0.9); HEMATOCRIT 25.6 % (42.0-52.0); HEMOGLOBIN 8.6 g/dl (14.0-17.9); LYMPHOCYTES # (AUTO) 0.6 X10'3 (1.1-4.8); LYMPHOCYTES % (AUTO) 29.3 % (21-51); MEAN CORPUSCULAR HEMOGLOBIN 32.1 PG (27.0-31.0); MEAN CORPUSCULAR HGB CONC 33.6 g/dL (33.0-36.5); MEAN CORPUSCULAR VOLUME 95.5 FL (78-98); MEAN PLATELET VOLUME 7.3 FL (7.4-10.4); MONOCYTES # (AUTO) 0.4 X10'3 (0-0.9); MONOCYTES % (AUTO) 20.8 % (2-12); NEUTROPHILS # (AUTO) 0.8 X10'3 (1.8-7.7); NEUTROPHILS % (AUTO) 40.8 % (42-75); PLATELET COUNT 67 X10'3 (140-440); RED BLOOD COUNT 2.68 X10'6 (4.70-6.10); RED CELL DISTRIBUTION WIDTH 20.6 % (11.5-14.5)
[2018-11-27 06:37] LABS: ALANINE AMINOTRANSFERASE 28 U/L (12-78); ALBUMIN 1.9 G/DL (3.4-5.0); ALBUMIN/GLOBULIN RATIO 0.5 (1.1-1.5); ALKALINE PHOSPHATASE 92 IU/L (46-116); ANION GAP 5 (8-16); ASPARTATE AMINO TRANSFERASE 40 U/L (10-37); BILIRUBIN,TOTAL 1.9 MG/DL (0.1-1.0); BLOOD UREA NITROGEN 1 MG/DL (7-18); BUN/CREATININE RATIO 1.4 (5.4-32.0); CALCIUM 7.5 MG/DL (8.5-10.1); CHLORIDE 114 MMOL/L (99-107); CREATININE 0.71 MG/DL (0.60-1.10); GLUCOSE 78 MG/DL (70-104); MAGNESIUM 1.2 MG/DL (1.5-2.4); POTASSIUM 3.7 MMOL/L (3.5-5.1); SODIUM 145 MMOL/L (135-145); TOTAL CARBON DIOXIDE 25.9 MMOL/L (24-32); TOTAL PROTEIN 5.8 G/DL (6.4-8.2); eGFR > 90 ML/MIN
--- NOTE | 2018-11-27 06:47 | NUR ---
Problems reprioritized. Patient report given, questions answered & plan of care reviewed with Chiqui BUCIO.
[2018-11-27] MEDS: NUT.TX.IMPAIRED DIGEST FXN (Ensure Clear) 237 ML PO SCH ×3 (08:00→18:17)
[2018-11-27] MEDS: fluconazole-Diflucan 100MG/NS 50 ML IV SCH (08:00)
[2018-11-27] MEDS: K and/or MAG REPLACEMENT MC SCH (08:00)
[2018-11-27] MEDS: MULTIVIT-MIN/FERROUS GLUCONATE 9 MG/15 ML LIQUID PEG SCH (08:00)
[2018-11-27 08:06] LABS: PLATELET ESTIMATE DECREASED; TOTAL CELLS COUNTED 100
[2018-11-27 08:07] LABS: ANISOCYTOSIS 3+; ELLIPTOCYTES FEW; SCHISTOCYTES FEW; TOXIC GRANULATION 2+
[2018-11-27] MEDS: sodium chloride 0.45% 1,000 ML IV SCH (08:20)
[2018-11-27] MEDS: lactobacillus rhamnosus 10,000 MMU CELLS/CAPSULE PO SCH ×2 (09:00→20:03)
[2018-11-27] MEDS: magnesium oxide 400mg tablet PEG SCH ×2 (09:00→20:03)
[2018-11-27] MEDS: thiamine 100mg tablet PEG SCH (09:01)
[2018-11-27] MEDS: folic acid 1mg tablet PEG SCH (09:01)
[2018-11-27] MEDS: pantoprazole 40mg Tablet.DR PO SCH ×2 (09:01→20:03)
[2018-11-27] MEDS: sertraline 25mg tablet PO SCH (09:01)
[2018-11-27] MEDS: Neutra Phos packet PO SCH ×2 (09:01→20:04)
[2018-11-27] MEDS: busPIRone 15mg tablet PEG SCH ×3 (09:01→21:17)
[2018-11-27] MEDS: buprenorphine/naloxone 8MG-2MG SUBlingual film SL SCH ×2 (09:02→20:03)
--- NOTE | 2018-11-27 11:00 | NUR ---
Dr Logan DCd IV. Will replace pt IV meds w/oral orders.
--- NOTE | 2018-11-27 11:08 | NUR ---
PAGE to Dr Logan: RM [phone]. Pt IV to L jugular has come out. Will make an attempt to restart new IV. Chiqui [phone]
[2018-11-27] MEDS ORDERED: LORazepam 0.5 MG tablet PEG PRN (15:35)
[2018-11-27 18:00] VITALS: BP 137/80
[2018-11-27] MEDS: DOXYCYCLINE 100MG CAPSULE PEG SCH (18:17)
--- NOTE | 2018-11-27 18:59 | NUR ---
Patient in room [facility]TH[facility] 4006. I have received report from RUPINDER Florian and had the opportunity to ask questions and assume patient care. Patient awake for bedside report and stable at this time. Will continue to monitor closely.
--- NOTE | 2018-11-27 19:10 | NUR ---
Problems reprioritized. Patient report given, questions answered & plan of care reviewed with RUPINDER Marino.
[2018-11-27 23:00] VITALS: BP 148/88
[2018-11-28 06:00] VITALS: BP 129/68
--- NOTE | 2018-11-28 06:02 | NUR ---
Problems reprioritized. Patient report given, questions answered & plan of care reviewed with RUPINDER Brizuela.
--- NOTE | 2018-11-28 06:10 | NUR ---
received report from florida mena
[2018-11-28 06:46] LABS: BASOPHILS % (AUTO) 0.8 % (0-1); EOSINOPHILS # (AUTO) 0.1 X10'3 (0-0.9); EOSINOPHILS % (AUTO) 5.6 % (0-6); HEMOGLOBIN 8.6 g/dl (14.0-17.9); LYMPHOCYTES # (AUTO) 0.7 X10'3 (1.1-4.8); LYMPHOCYTES % (AUTO) 31.8 % (21-51); MEAN CORPUSCULAR HEMOGLOBIN 31.9 PG (27.0-31.0); MEAN CORPUSCULAR HGB CONC 33.2 g/dL (33.0-36.5); MEAN PLATELET VOLUME 7.8 FL (7.4-10.4); MONOCYTES # (AUTO) 0.4 X10'3 (0-0.9); MONOCYTES % (AUTO) 18.4 % (2-12); NEUTROPHILS # (AUTO) 0.9 X10'3 (1.8-7.7); NEUTROPHILS % (AUTO) 43.4 % (42-75); PLATELET COUNT 76 X10'3 (140-440); RED BLOOD COUNT 2.71 X10'6 (4.70-6.10); RED CELL DISTRIBUTION WIDTH 20.7 % (11.5-14.5); WHITE BLOOD COUNT 2.1 X10'3 (4.5-11.0)
[2018-11-28 07:02] LABS: ALANINE AMINOTRANSFERASE 25 U/L (12-78); ALBUMIN/GLOBULIN RATIO 0.5 (1.1-1.5); ALKALINE PHOSPHATASE 89 IU/L (46-116); ANION GAP 7 (8-16); ASPARTATE AMINO TRANSFERASE 43 U/L (10-37); BILIRUBIN,TOTAL 2.1 MG/DL (0.1-1.0); BLOOD UREA NITROGEN 2 MG/DL (7-18); BUN/CREATININE RATIO 2.8 (5.4-32.0); CALCIUM 7.5 MG/DL (8.5-10.1); CHLORIDE 113 MMOL/L (99-107); CREATININE 0.72 MG/DL (0.60-1.10); GLUCOSE 76 MG/DL (70-104); POTASSIUM 3.8 MMOL/L (3.5-5.1); SODIUM 146 MMOL/L (135-145); TOTAL CARBON DIOXIDE 25.7 MMOL/L (24-32); TOTAL PROTEIN 5.8 G/DL (6.4-8.2); eGFR > 90 ML/MIN
[2018-11-28] MEDS: K and/or MAG REPLACEMENT MC SCH (07:05)
[2018-11-28] MEDS: buprenorphine/naloxone 8MG-2MG SUBlingual film SL SCH ×2 (07:16→20:00)
[2018-11-28] MEDS: busPIRone 15mg tablet PEG SCH ×3 (07:18→20:01)
[2018-11-28] MEDS: folic acid 1mg tablet PEG SCH (07:19)
[2018-11-28] MEDS: magnesium oxide 400mg tablet PEG SCH ×2 (07:20→20:01)
[2018-11-28] MEDS: DOXYCYCLINE 100MG CAPSULE PEG SCH ×2 (07:21→16:57)
[2018-11-28] MEDS: lactobacillus rhamnosus 10,000 MMU CELLS/CAPSULE PO SCH (07:22)
[2018-11-28] MEDS: thiamine 100mg tablet PEG SCH (07:22)
[2018-11-28] MEDS: pantoprazole 40mg Tablet.DR PO SCH ×2 (07:23→20:01)
[2018-11-28] MEDS: MULTIVIT-MIN/FERROUS GLUCONATE 9 MG/15 ML LIQUID PEG SCH (07:24)
[2018-11-28] MEDS: sertraline 25mg tablet PO SCH (07:24)
[2018-11-28] MEDS: Neutra Phos packet PO SCH ×2 (07:24→20:01)
[2018-11-28] MEDS: fluconazole 10 MG/1 ML 35ml oral suspension PEG SCH (07:25)
--- NOTE | 2018-11-28 07:31 | NUR ---
some of the barcode were worn off on the medication, checked all meds prior to admin, continue to monitor
[2018-11-28] MEDS: LORazepam 1 MG tablet PEG PRN ×3 (07:55→20:12)
[2018-11-28 08:00] LABS: ANISOCYTOSIS 3+; PLATELET ESTIMATE DECREASED; SMUDGE CELLS 1+; TOTAL CELLS COUNTED 100
[2018-11-28] MEDS: fluconazole-Diflucan 100MG/NS 50 ML IV SCH (08:00)
[2018-11-28] MEDS: NUT.TX.IMPAIRED DIGEST FXN (Ensure Clear) 237 ML PO SCH ×3 (08:04→18:00)
[2018-11-28 10:00] VITALS: BP 149/76
[2018-11-28] MEDS ORDERED: DOXY-224 PEG (12:17)
[2018-11-28] MEDS ORDERED: FLUC10SU PEG (12:17)
[2018-11-28] MEDS: ondansetron 4mg rapidly disintigrating tab PO PRN (13:04)
--- NOTE | 2018-11-28 13:30 | NUR ---
Reassessment: Pt advanced to pureed/thin liquids per [employer]OR. PO has improved to 50-75% avg pureed meals. RD and clinical pharmacist collaborated regarding d/c probiotic per MD approval given WBC 2.1. LBM 11/27. Will continue to monitor. Recommendations: 1) continue pureed/thin liquids diet per [employer]PECTOR/MD 2) monitor for PEG EN if PO declines 3) MVI/thiamin/folic given heavy Etoh abuse 4) Weekly wts Addendum: 11/28/18 at [address] Amended: Links added.
[2018-11-28 18:00] VITALS: BP 155/81
--- NOTE | 2018-11-28 18:15 | NUR ---
gave report to florida brooks
--- NOTE | 2018-11-28 18:16 | NUR ---
Patient in room [facility]TH[facility] 4006. I have received report from RUPINDER Brizuela and had the opportunity to ask questions and assume patient care. Patient is A&O x3, HYDE and is appropriate. He is sitting up in bed eating dinner, advises me he is being discharged in the morning, I advised I was aware. I will continue to monitor.
--- NOTE | 2018-11-28 18:42 | NUR ---
Dr. Logan cld regarding the patients need for Suboxone Rx upon discharge, he says he cannot write this Rx and Dr. Colin does that. I advised I would pass this info on to dayshift in the morning.
--- NOTE | 2018-11-28 20:14 | NUR ---
Patient refused to let me take pictures of wounds documented upon admission.
[2018-11-28 22:00] VITALS: BP 153/83
--- NOTE | 2018-11-29 01:05 | NUR ---
Patient up out of bed and was in anti-room off his isolation room and peed in the sink and cabinet. The second floor operator's caught him and I advised him this was unacceptable, at no time should he be in that room let alone peeing anywhere other than the bathroom.
[2018-11-29 06:00] VITALS: BP 123/68
--- NOTE | 2018-11-29 06:06 | NUR ---
received report from florida brooks
--- NOTE | 2018-11-29 06:20 | NUR ---
Problems reprioritized. Patient report given, questions answered & plan of care reviewed with RUPINDER Brizuela.
[2018-11-29] MEDS: sertraline 25mg tablet PO SCH (07:18)
[2018-11-29] MEDS: folic acid 1mg tablet PEG SCH (07:18)
[2018-11-29] MEDS: ondansetron 4mg rapidly disintigrating tab PO PRN (07:19)
[2018-11-29] MEDS: LORazepam 1 MG tablet PEG PRN (07:20)
[2018-11-29] MEDS: DOXYCYCLINE 100MG CAPSULE PEG SCH (07:21)
[2018-11-29] MEDS: pantoprazole 40mg Tablet.DR PO SCH (07:23)
[2018-11-29] MEDS: busPIRone 15mg tablet PEG SCH (07:23)
[2018-11-29] MEDS: magnesium oxide 400mg tablet PEG SCH (07:24)
[2018-11-29] MEDS: thiamine 100mg tablet PEG SCH (07:24)
[2018-11-29] MEDS: buprenorphine/naloxone 8MG-2MG SUBlingual film SL SCH (07:26)
[2018-11-29] MEDS: MULTIVIT-MIN/FERROUS GLUCONATE 9 MG/15 ML LIQUID PEG SCH (07:27)
[2018-11-29] MEDS: fluconazole 10 MG/1 ML 35ml oral suspension PEG SCH (07:28)
[2018-11-29] MEDS: Neutra Phos packet PO SCH (07:30)
[2018-11-29] MEDS: K and/or MAG REPLACEMENT MC SCH (07:34)
[2018-11-29] MEDS: NUT.TX.IMPAIRED DIGEST FXN (Ensure Clear) 237 ML PO SCH (08:35)
--- NOTE | 2018-11-29 09:25 | NUR ---
pt is refusing to have his d/c photos taken
--- NOTE | 2018-11-29 10:00 | NUR ---
pt d/c with instructions, understanding of instructions and w/all belongings including stuff locked up in safe, in wheelchair accompanied by nursing staff to cab to go to social security office and to f/u w/[facility]
--- NOTE | 2018-11-29 15:07 | NUR ---
WOUND INFECTION EDUCATION PROVIDED BY WOUND CARE 1. Patient instructed to call their primary doctor, or go the ED immediately if any of the following symptoms occur: * Increased pain in wound * Increase in drainage from the wound * Redness in the skin surrounding the wound * Warmth in the skin surrounding the wound * Bleeding from the wound * Temperature of 101 or greater 2. If any of these occur while in the hospital tell a nurse immediately. Addendum: 11/29/18 at 1507 by Gina Sanders RN Amended: Links added.
== END 2018-11-29 10:02 | disposition home or self-care (01) | DRG 720 ==
LOC: ER 11:54 → PCU 3S 17:01 → CMPBEDREQ 11-21 20:26 → ORTHO 4S 11-26 23:46
PROVIDERS: ADMIT Family Medicine; ATTEND Family Medicine
PROC: 0B21XFZ Change Tracheostomy Device in Trachea, External Approach (ICD-10-PCS; 2018-11-20)
PROC: 0D20XUZ Change Feeding Device in Upper Intestinal Tract, External Approach (ICD-10-PCS; 2018-11-20)
PROC: 4A02X4A Measurement of Cardiac Electrical Activity, Guidance, External Approach (ICD-10-PCS; principal; 2018-11-22)
PROC: 02HV33Z Insertion of Infusion Device into Superior Vena Cava, Percutaneous Approach (ICD-10-PCS; 2018-11-22)
PROC: B548ZZA Ultrasonography of Superior Vena Cava, Guidance (ICD-10-PCS; 2018-11-22)
DX: A41.9 Sepsis, unspecified organism (principal); B37.89 Other sites of candidiasis; F10.231 Alcohol dependence with withdrawal delirium; Z93.0 Tracheostomy status; D69.59 Other secondary thrombocytopenia; I85.00 Esophageal varices without bleeding; K94.22 Gastrostomy infection; R56.9 Unspecified convulsions; S09.90XA Unspecified injury of head, initial encounter; E87.6 Hypokalemia; K74.60 Unspecified cirrhosis of liver; B95.62 Methicillin resistant Staphylococcus aureus infection as the cause of diseases classified elsewhere; I10 Essential (primary) hypertension; D64.9 Anemia, unspecified; F32.9 Major depressive disorder, single episode, unspecified; G89.29 Other chronic pain; M54.9 Dorsalgia, unspecified; Y83.3 Surgical operation with formation of external stoma as the cause of abnormal reaction of the patient, or of later complication, without mention of misadventure at the time of the procedure; R21 Rash and other nonspecific skin eruption; Z66 Do not resuscitate; K70.9 Alcoholic liver disease, unspecified; W18.39XA Other fall on same level, initial encounter; Y93.89 Activity, other specified; Z88.6 Allergy status to analgesic agent; Z88.8 Allergy status to other drugs, medicaments and biological substances; Z86.74 Personal history of sudden cardiac arrest; Z59.0 Homelessness; Z80.6 Family history of leukemia; Z86.718 Personal history of other venous thrombosis and embolism; Y92.89 Other specified places as the place of occurrence of the external cause; Y99.8 Other external cause status
CPT/HCPCS: 36415; 36569; 70450; 71045; 74176; 76937; 80053; 80202; 80305; 80320; 81001; 82948; 83605; 83735; 84100; 84145; 84484; 85025; 85576; 85610; 85730; 87040; 87070; 87075; 87077; 87081; 87088; 87102; 87186; 92508; 92616; 93005; 94640; 94760; 96365; 96367; 96375; 97110; 97116; 97162; 97530; 99285; A7521; G0378; J0692; J0696; J1450; J1630; J1885; J1953; J1956; J2060; J2270; J2405; J3370; J3411; J3475; J3480; J3490; J7030; J7050; J7060; Q9963

== ENCOUNTER 2018-11-30 00:16 | Emergency (ER) | payer MEDICAID ==
[~2018-11-30] VITALS: Ht 167.6 cm; Wt 70.0 kg
[~2018-11-30 00:16] MED LIST changes: -BACDS PEG; +DOXY-224 PEG; +FLUC10SU PEG; -FURO-150 PO; -NEUPHOSK PEG; +NEUPHOSK PO; -PANT-47 PEG; +PANT-47 PO; +SERT25TA5 PO
[2018-11-30 00:23] VITALS: BP 136/72
--- NOTE | 2018-11-30 00:27 | NUR ---
finished triage. went to find patient and he was not in lobby.
--- NOTE | 2018-11-30 01:19 | NUR ---
Call placed to number on file after attempting to Rm 3 times. Message box full, unable to F/U Dr. Correa informed.
== END 2018-11-30 01:21 | disposition left against medical advice (07) ==
LOC: ER 00:16
DX: R42 Dizziness and giddiness (principal); Z53.21 Procedure and treatment not carried out due to patient leaving prior to being seen by health care provider

== ENCOUNTER 2018-12-09 03:34 | Emergency (ER) | payer MEDICAID ==
[~2018-12-09] VITALS: Ht 185.4 cm; Wt 95.5 kg
[2018-12-09 03:35] VITALS: BP 116/96
== END 2018-12-09 04:39 | disposition home or self-care (01) ==
LOC: ER 03:35
DX: S01.511D Laceration without foreign body of lip, subsequent encounter (principal); I10 Essential (primary) hypertension; G89.29 Other chronic pain; Z59.0 Homelessness; Z98.890 Other specified postprocedural states; Z88.6 Allergy status to analgesic agent; Z88.8 Allergy status to other drugs, medicaments and biological substances; Z79.899 Other long term (current) drug therapy; X58.XXXD Exposure to other specified factors, subsequent encounter
CPT/HCPCS: 99283

== ENCOUNTER 2018-12-12 05:11 | Emergency (ER) | payer MEDICAID ==
[~2018-12-12] VITALS: Ht 185.4 cm; Wt 84.0 kg
[2018-12-12 05:15] VITALS: BP 102/65
[2018-12-12] MEDS ORDERED: amox tr/potassium clavulanate 875/125mg TAB PO ONE (05:40)
[2018-12-12] MEDS ORDERED: LORazepam 1 MG tablet PO ONE (05:40)
[2018-12-12] MEDS ORDERED: AMOX-580 PO (06:30)
== END 2018-12-12 07:26 | disposition home or self-care (01) ==
LOC: ER 05:12
DX: J95.03 Malfunction of tracheostomy stoma (principal); I10 Essential (primary) hypertension; G89.29 Other chronic pain; Z98.890 Other specified postprocedural states; Z59.0 Homelessness; Z88.6 Allergy status to analgesic agent; Z88.8 Allergy status to other drugs, medicaments and biological substances; Z79.899 Other long term (current) drug therapy; Y83.8 Other surgical procedures as the cause of abnormal reaction of the patient, or of later complication, without mention of misadventure at the time of the procedure
CPT/HCPCS: 71045; 99283; 99284